=== PATIENT | female | born 1965 | race Caucasian/White ===

== ENCOUNTER 2023-06-02 09:49 | Outpatient (CLI) | payer BC, SELFPAY ==
--- OUTSIDE RECORDS SUMMARY | 2023-06-02 09:55 | XMS_ITS | Encounter Summary ---
Author Name Unknown Organization [facility] Address [address] [place] [address] Care Team Providers Care Inside Parts Sales Name Role Phone Katherin Landeros MD Primary Care Provider [phone] Reason for Visit * Reason Comments Refill sertraline (ZOLOFT) 50 MG tablet Encounter Details Date Type Department Care Team Description 04/28/2023 Refill [facility] [address] [place], [place] [id number] Katherin Landeros MD [address] [place] [address] Refill (sertraline (ZOLOFT) 50 MG tablet) Social History Tobacco Use Types Packs/Day Years Used Date Smoking Tobacco: Never Smokeless Tobacco: Never Alcohol Use Standard Drinks/Week Comments Yes 0 (1 standard drink = 0.6 oz pur e alcohol) 2-3 times per month PHQ-2 Answer Date Recorded PHQ-2 Score 0 04/28/2022 Sex and Gender Information Value Date Recorded Sex Assigned at Not on file Gender Identity Not on file Sexual Orientation Not on file documented as of this encounter Nursing Notes * Honey Hammonds - 05/04/2023 1:48 PM CST Medication Refill - Due for Visit Refill was approved for 90 day supply, patient is due to be seen in the next 90 days. Called patient, was: unable to reach patient. 2nd call attempted. Unsuccessful in reaching patient. Frontline Action: Close encounter. Refill has already been approved. CTOR OF DONOR RELATIONS * Honey Hammonds - 04/30/2023 9:50 AM CST Medication Refill - Due for Visit Refill was approved for 90 day supply, patient is due to be seen in the next 90 days. Called patient, was: unable to reach patient. 1st call attempted. Left message to call back. Scheduling Action: Patient needs to schedule an appointment in the next 3 months. If able to schedule, please document date of appointment. No further action is needed. CTOR OF DONOR RELATIONS * Mini Lauren RN - 04/28/2023 2:56 PM CST Further Assistance Needed on Refill from Can Tester Patient is due for Qualifying Visit Medication has been refilled for 90 day supply. Patient is due for an Office/Video Visit in the next 90 days.. Call Patient and document using .EVELYN. After attempting to schedule patient: Close encounter. Refill has already been processed per standing order. Requested Prescriptions Pending Prescriptions Disp Refills sertraline (ZOLOFT) 50 MG tablet 90 Tablet 0 Sig: Take 1 Tablet (50 mg) by mouth daily. CTOR OF DONOR RELATIONS * Kacey, Gretchen Surescripts Prov Query - 04/28/2023 2:55 PM CST sertraline (ZOLOFT) 50 MG tablet Medication started: 10/06/2017 Last ordered by KATHERIN LANDEROS: 04/28/2022 (365 days ago) QTY: 90, Refills: 3, Sig: take 1 tablet (50 mg) by mouth daily. (unchanged) -> An office visit is overdue (performed over 12 months ago, required every 12 months). -> Refill x 1 month (courtesy refill. overdue for an office visit) Last qualifying visit: 04/28/2022 (with KATHERIN LANDEROS) Next scheduled visit: None Age: 57 [employer] Ref[employer], Reference: [id number], 04/28/2023 2:55:40 PM DIRECTOR OF DONOR RELATIONS, Pool: PN Refill Centralized Services - Primary Care [[id number]] ([id number]) CTOR OF DONOR RELATIONS * Riddhi Sequeira - 04/28/2023 2:52 PM CST Medications - Refill Request Name of prescribing clinician: Tevin Landeros MD Additional comments (related to the above concern):Pt states that pharmacy put in refill request and has not heard nothing back, Pt has one medication that she needs that says the script is as well, Pt states she is out of the sertraline (ZOLOFT) 50 MG tablet as well For this refill, patient would like it filled at the pharmacy listed in Medication Management. If there are questions regarding your request, is it okay to leave a detailed message on your voicemail? Yes Is there anything else I can help you with today? CTOR OF DONOR RELATIONS documented in this encounter Plan of Treatment Not on file documented as of this encounter Visit Diagnoses Diagnosis Current mild episode of major depressive disorder without prior episode (HRC) documented in this encounter Care Teams Inside Parts Sales Relationship Specialty Start Date End Date Katherin Landeros MD [address] [facility] [address] [place] [address] PCP - General Internal Medicine 03/26/22 documented as of this encounter
--- OUTSIDE RECORDS SUMMARY | 2023-06-02 09:55 | XMS_ITS | Encounter Summary ---
Author Name Unknown Organization [facility] Address [address] [place] [address] Care Team Providers Care Manager Program Management Name Role Phone Billie Landeros MD Primary Care Provider [phone] Reason for Referral * Therapies (Routine) - New Request Specialty Diagnoses / Procedures Referred By Contbianca t Referred To Contact Diagnoses Right lumbar radiculitis Idiopathic scoliosis and kyphoscoliosis Nery Pang, JASVIR [address] [place] [address] POS NOT ON FILE Referral ID Status Reason Start Date Expiration Date V isits Requested Visits Authorized [id number] New Request 10/03/2022 10/03/2023 1 1 Scheduling Instructions This order is your clinician's recommendation for a service and is not an insurance referral which authorizes payment. The recommended service and/or location may not be covered by your insurance plan. Please call the number on your insurance card to find out your specific benefits and coverage for the recommended services and/or location. If you need help scheduling the recommended services, please ask your clinician's staff to assist you. Question Answer Appointment Urgency? Non-Urgent Requested Services Evaluate and treat May use saline for irrigation or cleansing Yes dexamethasone use Yes May check glucose per protocol (see policy link below) or if patient has symptoms? Yes Comments Kyphoscoliosis; Rt LBP to pelvis and anteromedial RT leg MR L spine negative Consider MSK causes Reason for Visit * Reason Comments MRI Results Lumbar Encounter Details Date Type Department Care Team Description 10/03/2022 10:00 AM CDT Office Visit [facility] [address] [facility] [place] [address] Nery Pang PA-C [address] [facility] [place] [address] Right lumbar radiculitis (Primary Dx); Idiopathic scoliosis and kyphoscoliosis Social History Tobacco Use Types Packs/Day Years [...] on file documented as of this encounter Patient Instructions * Patient Instructions* Isacc Awan CMA - 10/03/2022 10:00 AM CDT Thank you for Choosing [facility] for your health care visit today. Nery Pang PA-C [facility] hours: 7:30a-6:30p M/W/F Please allow time for insurance prior authorization on imaging and interventions Medication Requests: Prescriptions are not filled on weekends or on weekdays after 3:00 PM. For all medication refills: Request a refill using Zipdialt or contact your pharmacy. What is Know Your Cost? Know Your Cost is a service for patients and patient/members to call and receive personalized cost information and estimates across our care group. The phone number is (COST) Thursday - Thursday 8 AM to 5 PM Advanced Imaging Scheduling: To schedule an MRI, Ultrasound, or Image guided injection at [facility] please call [phone]. To schedule an MRI or CT at a [facility] location please call [phone]. [facility] Workers[employer] [address] [place], [place] [address] (Phone) Email: [email or web address] Release of Information: Radiology/Imaging [address] [place] [address] (Phone) Health Information Management [address] [place] [address] (Phone) [email or web address] documented in this encounter Progress Notes * Nery Pang PA-C - 10/03/2022 10:00 AM CDT Dana Allan [id number] 1965 [facility] Follow-Up 10/03/2022 History of Present Illness: Dana Allan is a 57 y.o. female who presents for follow-up regarding chronic low back pain. I last evaluated the patient on 08/13/2022 at which time they described chronic back pain with radiation into the anterior thighs. Concern at that time was for lumbar nerve root compression, so a MRIof the Lumbar spine was ordered. The patient presents today to discuss results and further treatment options. Please see the MRI results below. Symptoms today have remained unchanged. She continues to describe difficulty with rolling fymn-xf-nhow at night, but denies motor weakness. The symptoms into the anterior legs are slightly less notable, but still intermittently present on the right. She is not using chronic medication for this, but will take ibuprofen as needed. She believes it ishelpful. Today, she rates her pain 1-2/10 on the pain scale. She has yet to schedule physical therapy. Physical Exam: Formal Neurological exam deferred Kyphoscoliotic She transitions well; gait non-antalgic Strength grossly intact Lumbar mobility preserved Imaging: MR of the Lumbar spine - (09/22/2022): FINDINGS: Five lumbar-type vertebral bodies. The conus medullaris terminates at the level of T12-L1. Normal cord signal. No acute compression fracture or suspicious osseous lesion. Mild degenerative disc changes. Normal alignment. Prominent right renal cyst. Level by level: T12-L1: No spinal canal or neural foraminal stenosis. L1-2: No spinal canal or neural foraminal stenosis. L2-3: No spinal canal or neural foraminal stenosis. L3-4: Minimal disc bulge. Mild facet arthropathy. No spinal canal stenosis. Slight neural foraminalstenosis. L4-5: Mild to moderate facet arthropathy. Minimal disc bulge. No canal stenosis. Foramina are patent. L5-S1: Minimal disc bulge. Mild facet arthropathy. Canal is patent. Foramina are patent. IMPRESSION: 1. Degenerative findings as above without significant spinal canal stenosis or high-grade neural foraminal stenosis. 2. Prominent right renal cyst. Report per radiology. I ordered and independently reviewed the imaging study above; the results were discussed with the patient. Diagnostic Impression: 1. Mild lumbosacral spondylosis 2. Kyphoscoliosis 3. Incidental finding of Right renal cyst Plan: Reassurance was given that her MRI looks quite good. I would suggest that she follow through with acourse of physical therapy. If not improved, or if pain localizes closer to the thoracic spine, I would suggest MR imaging of the thoracic spine without contrast. In the interim, she can continue with topical preparations, and oral mrnb-kli-dcttune anti-inflammatories and pain medications as tolerated. I would encourage her to remind her primary doctor of her right renal cyst at her next well visit. They can consider whether further ultrasound is required. TT: [address]: 24 minutes discussing above Scribe Disclosure: I, Nery Pang, am serving as a scribe to document services personally performed by Nery Kwon PA-C at this visit, based upon the provider's statements to me. All documentation has been reviewed by the aforementioned provider prior to being entered into the official medical record. Portions of this medical record were completed by a scribe. UPON MY REVIEW AND AUTHENTICATION BY ELECTRONIC SIGNATURE, this confirms (a) I performed the applicable clinical services, and (b) the record is accurate. Nery Pang PA-C documented in this encounter Plan of Treatment Scheduled Referrals Name Type Priority Associated Diagnoses Orde r Schedule Physical Therapy Referral Routine Right lumbar radiculitis Idiopathic scoliosis and kyphoscoliosis Ordered: 10/03/2022 documented as of this encounter Visit Diagnoses Diagnosis Right lumbar radiculitis- Primary Thoracic or lumbosacral neuritis or radiculitis, unspecified Idiopathic scoliosis and kyphoscoliosis Scoliosis (and kyphoscoliosis), idiopathic documented in this encounter Care Teams Manager Program Management Relationship Specialty Start Date End Date Billie Landeros MD [address] [facility] [address] [place] [address] PCP - General Internal Medicine 03/26/22 documented as of this encounter
--- OUTSIDE RECORDS SUMMARY | 2023-06-02 09:55 | XMS_ITS | Encounter Summary ---
Author Name Unknown Organization [facility] Address [address] [place] [id number] Care Team Providers Care Speech Assistant Name Role Phone Billie Landeros MD Primary Care Provider [phone] Encounter Details Date Type Department Care Team Description 12/19/2022 2:30 PM CDT Telemedicine [facility] [address] [place], [place] [id number] Mary Lowe APRN, CNP [address] [place] [address] ERIC (obstructive sleep apnea) (Primary Dx) Social History Tobacco Use Types Packs/Day Years [...] on file documented as of this encounter Progress Notes * Mary Lowe APRN, CNP - 12/19/2022 2:30 PM CDT Attempted to contact patient twice on [place] video with no answer. Mary Lowe APRN, POLLO documented in this encounter Plan of Treatment Not on file documented as of this encounter Visit Diagnoses Diagnosis ERIC (obstructive sleep apnea)- Primary Obstructive sleep apnea (adult) (pediatric) documented in this encounter Care Teams Speech Assistant Relationship Specialty Start Date End Date Billie Landeros MD [address] [facility] [address] [place] [address] PCP - General Internal Medicine 03/26/22 documented as of this encounter
--- OUTSIDE RECORDS SUMMARY | 2023-06-02 09:55 | XMS_ITS | Encounter Summary ---
Author Name Unknown Organization [facility] Address [address] [place] [address] Care Team Providers Care Brand Sales Consultant Name Role Phone Billie Landeros MD Primary Care Provider [phone] Reason for Referral * Procedure/Equipment (Routine) - Closed Specialty Diagnoses / Procedures Referred By Contac t Referred To Contact Diagnoses Kyphoscoliosis Lumbar radiculitis Procedures MR Lumbar Spine WO IV Cont Nery Pang PA-C [address] [place] [address] Referral ID Status Reason Start Date Expiration Date Visits Re quested Visits Authorized [id number] Closed 08/13/2022 11/12/2023 1 1 * Procedure/Equipment (Routine) - Incomplete Specialty Diagnoses / Procedures Referred By Contac t Referred To Contact Diagnoses Low back pain radiating to right leg Procedures XR Pelvis W Rt Lateral Hip Nery Pang PA-C [address] [place] [address] Referral ID Status Reason Start Date Expiration Date V isits Requested Visits Authorized [id number] Incomplete 08/13/2022 11/12/2023 1 1 * Procedure/Equipment (Routine) - Incomplete Specialty Diagnoses / Procedures Referred By Contac t Referred To Contact Diagnoses Low back pain radiating to right leg Procedures XR Lumbar Spine 2 Views Nery Pang PA-C [address] [place] [address] Referral ID Status Reason Start Date Expiration Date V isits Requested Visits Authorized [id number] Incomplete 08/13/2022 11/12/2023 1 1 Reason for Visit * Reason Comments BACK PAIN, LOW Encounter Details Date Type Department Care Team Description 08/13/2022 1:00 PM CDT Office Visit [facility] [address] [facility] [place] [address] Nery Pang PA-C [address] [facility] [place] [id number] Lumbar radiculitis (Primary Dx); Kyphoscoliosis Social History Tobacco Use Types Packs/Day Years [...] on file documented as of this encounter Last Filed Vital Signs Vital Sign Reading Time Taken Comments Blood Pressure - - Pulse - - Temperature - - Respiratory Rate - - Oxygen Saturation - - Inhaled Oxygen Concentration - - Weight 82.6 kg (182 lb) 08/13/2022 12:55 PM CDT Height 167.6 cm (5' 6) 08/13/2022 12:55 PM CDT Body Mass Index 29.38 08/13/2022 12:55 PM CDT documented in this encounter Patient Instructions * Patient Instructions* Nery Pang PA-C - 08/13/2022 1:00 PM CDT Thank you for Choosing [facility] for your health care visit today. Nery Pang PA-C Orthopaedic Spine Clinic hours: 7:30a-6:30p M/W/F Please allow time for insurance prior authorization on imaging and interventions Medication Requests: Prescriptions are not filled on weekends or on weekdays after 3:00 PM. For all medication refills: Request a refill using MyChart or contact your pharmacy. What is Know Your Cost? Know Your Cost is a service for patients and patient/members to call and receive personalized cost information and estimates across our care group. The phone number is (COST) Thursday - Thursday 8 AM to 5 PM Advanced Imaging Scheduling: To schedule an MRI, Ultrasound, or Image guided injection at [facility] please call [phone]. To schedule an MRI or CT at a [facility] location please call [phone]. [facility] Workers' Compensation [address] [place] [address] (Phone) Email: [email or web address] Release of Information: Radiology/Imaging [address] [place] [address] (Phone) Health Information Management [address] [place] [address] (Phone) [email or web address] Dear Anneliese, Lets get a MRI of the Lumbar spine looking at your lower lumbar levels for disc herniations Also, you are tender at the SI joints, so lets make sure there is no inflammation in the bone thereeither. documented in this encounter Progress Notes * Nery Pang PA-C - 08/13/2022 1:00 PM CDT Dana Allan [id number] 1965 [facility] Consultation 08/13/2022 Chief Complaint: Low back pain with radiation to the anterior thighs, right greater than left History of Present Illness: Dana Allan is a 57 y.o. female who was seen today in the medical spine clinic for evaluation of chronic low back pain with radiation to the anterolateral thighs which has been worsening over the last two years. Anneliese denies any inciting injury, and has a known history of kyphosis. She has dealt with longstanding low back pain, which usually will radiate to the lateral hips. In the last few years, she has had worsening pain into the anterior thigh stopping at the knees, right greater than left. Recently, shehad an episode where her pain was quite sharp and kept her up at night. In addition, she can also suffer with posterior lower extremity achiness, and note sensitivity to touch in the legs. She denies motor weakness. She will use oral anti-inflammatories as needed and with benefit. She participates in gericare aide, but has yet to do physical therapy. Today, she rates her pain 1-4/10 on the pain scale and denies red flags. Allergies: Amitriptyline Past Medical History: The patient has a past medical history of Adenomatous polyp of colon (09/05/2020), Anxiety, Breast disorder, Depression, Diaphragmatic hernia (11/23/2009), Heartburn, Irritable bowel syndrome, Migraines, Pap smear abnormality of cervix, STD (sexually transmitted disease), and Varicella. Past Surgical History: The patient has a past surgical history that includes Eye surgery; hiatal hernia repair (08/2015); hernia repair; Endomet Ablat Therm W/O Scope Guid; dilation and curettage; Gallbladder surgery (2017); laparoscopy; breast biopsy (Left, 02/16/2006); breast biopsy (Bilateral, 06/30/2017); breast biopsy (Right, 07/06/2017); and Acquired absence of other specified parts of digestive tract (Hiatal Hernia). Family History: The patient's family history includes Alcohol Abuse in her maternal grandfather; Cancer in her mother; Cancer, Breast in her mother; Cancer, Colon in her maternal uncle; Colon Polyps (ageof onset: 65) in her father; Diabetes in her father and paternal grandmother; Diabetes,Type II in her father, paternal grandmother, and paternal uncle; Emphysema in her maternal gra ndmother; Excessive sleepiness in her father; Heart Disease in her father and paternal grandfather; High Blood Pressure in her mother; High Cholesterol in her father; Hypertension in her father and mother; Sleep apnea in her father; Snoring in her father; Stroke in her father. There is no history of Cancer, Ovary, Osteoporosis, or Thyroid Disorder. Social History: They are a non-smoker. Review of Systems: 01/31 systems were reviewed and are negative except where noted here or on intake form: See intake form The General Medical History Form dated 08/11/2022 was updated and reviewed with the patient; this islocated in [employer] in [employer]. Physical Exam: VS: LMP 02/15/2017 (Exact Date) BMI: Estimated body mass index is 29.21 kg/m?? as calculated from the following: Height as of 06/24/22: 1.676 m (5' 6). Weight as of 06/24/22: 82.1 kg (181 lb). Gen/Psych: AxOx3. Good affect. Good historian. The patient is well groomed. The patient is not using an assistive device. Eyes: PERRL. ENT: Face symmetric. Resp: Unlabored. CV: Good perfusion to lower extremities. No edema. Skin: Warm & dry without discoloration or lesions MSK: Symmetric tone and bulk. The patient is kyphoscoliotic. Pelvis is grossly symmetric. Femoral Stretch Test deferred. DEVONTE positive bilaterally, right > left. FADIR negative. Neuro: Gait and station normal, and non-antalgic. The patient does transition well from a seated position. Toe walk, heel walk intact. Non-tender with palpation of spinous processes, paraspinal muscles, SI joints, sciatic notch, or greater trochanters. Lumbar mobility shows intact lumbar range of motion with all planes. Lower Extremity muscle group strength is 5/5 with hip flexion, knee add/abduction intact, knee extension intact, dorsi/ plantar flexion. SLR is negative. Sensation intact to light touch and pinprick. DTR's symmetric in the lower extremities at the patellar tendon, and ankle jerk. 2/4 . Imaging: XR of the Lumbar spine - (08/13/2022): FINDINGS: 2 views obtained. No acute fracture. Minimal degenerative disc height loss involving the lumbar spine. Moderate lumbar spine facet arthropathy, most prominent at the levels of L3-4, L4-5, and L5-S1. No significant anterolisthesis or retrolisthesis of lumbar vertebral bodies. Exaggerated lumbar lordosis. Cholecystectomy clips within the right upper quadrant. Portions of the bilateral sacroiliac joints are obscured by superimposition artifact from enteric contents and imaging obliquity,though the visualized portions of the sacroiliac joints are unremarkable in appearance. Bowel gas pattern nonobstructive XR Pelvis & Right Hip (08/13/2022): FINDINGS: 2 views obtained. No acute fracture. No significant hip osteoarthritic degenerative narrowing bilaterally. Minimal osseous spurring off the periphery of the left acetabular roof. No radiographic evidence of femoral head avascular necrosis. Partial visualization of mild degenerative changes across the bilateral sacroiliac joints. Degenerative changes across the pubic symphysis. Bowel gaspattern nonobstructive. I independently reviewed and interpreted the imaging studies above; the results were discussed withthe patient. Diagnostic Impression: Dana is a 57 y.o. year-old female with: 1. Kyphoscoliosis 2. Chronic low back pain 3. Bilateral lower extremity radiculitis Plan: We discussed imaging and treatment options today, and because she has been symptomatic for so long we elected to have her undergo MR imaging of the lumbar spine. This will show evidence of nerve rootcompression and disc degeneration which may be accounting for lower extremity symptoms. I will follow-up with her afterwards in clinic to review. If amenable, she may benefit from a course of physical therapy, and consideration of oral medications. She was in agreement. TT: 31 minutes, CT: 30 minutes, Time includes chart review of documentation and imaging, discussing symptoms, imaging, and exam findings, and available options. Documents reviewed prior to seeing the patient included a General Medical History Form, an Oswestry Disability Index with a PHQ-2, which has been imaged in to [employer]. *Please note this document was drafted using voice recognition software. Typographical errors are liable to occur. Nery Pang PA-C documented in this encounter Plan of Treatment Not on file documented as of this encounter Results * MR Lumbar Spine WO IV Cont (09/22/2022 10:19 AM CDT) Anatomical Region Laterality Modality Spine, L-Spine, Skeletal, MSK Ma gnetic Resonance 09/22/2022 9:54 AM CDT Impressions 09/22/2022 2:04 PM CDT INDICATION: Low back pain, symptoms persist with > 6 wks treatment; Chronic LBP; Kyphoscoliosis; RT > Lt LBP to ant thighs TECHNIQUE: ??Routine non-contrast MRI of the lumbar spine. COMPARISON: Lumbar spine radiographs 08/13/2022. FINDINGS: Five lumbar-type vertebral bodies. The conus medullaris terminates at the level of T12-L1. ??Normal cord signal. ??No acute compression fracture or suspicious osseous lesion. Mild degenerative disc changes. ??Normal alignment. Prominent right renal cyst. Level by level: T12-L1: No spinal canal or neural foraminal stenosis. L1-2: No spinal canal or neural foraminal stenosis. L2-3: No spinal canal or neural foraminal stenosis. ?? L3-4: Minimal disc bulge. Mild facet arthropathy. No spinal canal stenosis. Slight neural foraminal stenosis. L4-5: Mild to moderate facet arthropathy. Minimal disc bulge. No canal stenosis. Foramina are patent. L5-S1: Minimal disc bulge. Mild facet arthropathy. Canal is patent. Foramina are patent. ?? IMPRESSION: ?? 1. Degenerative findings as above without significant spinal canal stenosis or high-grade neural foraminal stenosis. 2. Prominent right renal cyst. Comment: Many lumbar spine MRI findings are so common that while we may have reported their presence, they must be interpreted with caution and in the context of the clinical situation. The frequency of these findings in adults WITHOUT low back pain increases with age and are as follows: disk degeneration (37-96%), disk height loss (24-84%), disk bulge (30-84%), disk protrusion (29-43%), annular fissure (19- 29%), and facet degeneration (4-83%). Frequency percentages adapted from Etelvina W, Felicitas PH, Carrillo B, et al. AJNR AM J Neuroradiol 2015:36:811-16. Narrative Procedure Note Daniel Kilpatrick MD - 09/22/2022 IMPRESSION INDICATION: Low back pain, symptoms persist with > 6 wks treatment;Chronic LBP; Kyphoscoliosis; RT > Lt LBP to ant thighs TECHNIQUE: Routine non-contrast MRI of the lumbar spine. COMPARISON: Lumbar spine radiographs 08/13/2022. FINDINGS: Five lumbar-type vertebral bodies. The conus medullaristerminates at the level of T12-L1. Normal cord signal. No acutecompression fracture or suspicious osseous lesion. Mild degenerative discchanges. Normal alignment. Prominent right renal cyst. Level by level: T12-L1: No spinal canal or neural foraminal stenosis. L1-2: No spinal canal or neural foraminal stenosis. L2-3: No spinal canal or neural foraminal stenosis. L3-4: Minimal disc bulge. Mild facet arthropathy. No spinal canalstenosis. Slight neural foraminal stenosis. L4-5: Mild to moderate facet arthropathy. Minimal disc bulge. No canalstenosis. Foramina are patent. L5-S1: Minimal disc bulge. Mild facet arthropathy. Canal is patent.Foramina are patent. IMPRESSION: 1. Degenerative findings as above without significant spinal canalstenosis or high-grade neural foraminal stenosis. 2. Prominent right renal cyst. Comment: Many lumbar spine MRI findings are so common that while we mayhave reported their presence, they must be interpreted with caution and inthe context of the clinical situation. The frequency of these findings inadults WITHOUT low back pain increases with age and are as follows: diskdegeneration (37-96%), disk height loss (24-84%), disk bulge (30-84%),disk protrusion (29-43%), annular fissure (19- 29%), and facet degeneration(4-83%). Frequency percentages adapted from Etelvina W, Luetmer PH, [place] B, etal. AJNR AM J Neuroradiol 2015:36:811-16. Nery Pang PA-C RAD MRI * XR Pelvis W Rt Lateral Hip (08/13/2022 1:09 PM CDT) Anatomical Region Laterality Modality Pelvis, Hip Digital Radiogra phy 08/13/2022 12:5 9 PM CDT Impressions 08/13/2022 1:35 PM CDT COMPARISON: ??None. FINDINGS: ??2 views obtained. No acute fracture. No significant hip osteoarthritic degenerative narrowing bilaterally. Minimal osseous spurring off the periphery of the left acetabular roof. No radiographic evidence of femoral head avascular necrosis. Partial visualization of mild degenerative changes across the bilateral sacroiliac joints. Degenerative changes across the pubic symphysis. Bowel gas pattern nonobstructive. Narrative Procedure Note Daniel Boyle MD - 08/13/2022 IMPRESSION COMPARISON: None. FINDINGS: 2 views obtained. No acute fracture. No significant hiposteoarthritic degenerative narrowing bilaterally. Minimal osseousspurring off the periphery of the left acetabular roof. No radiographicevidence of femoral head avascular necrosis. Partial visualization of milddegenerative changes across the bilateral sacroiliac joints. Degenerativechanges across the pubic symphysis. Bowel gas pattern nonobstructive. Nery Pang PA-C RAD GD * XR Lumbar Spine 2 Views (08/13/2022 1:08 PM CDT) Anatomical Region Laterality Modality Spine, L-Spine Digital Radiogra phy 08/13/2022 12:5 9 PM CDT Impressions 08/13/2022 1:34 PM CDT COMPARISON: ??10/19/2006 FINDINGS: ??2 views obtained. No acute fracture. Minimal degenerative disc height loss involving the lumbar spine. Moderate lumbar spine facet arthropathy, most prominent at the levels of L3-4, L4-5, and L5-S1. No significant anterolisthesis or retrolisthesis of lumbar vertebral bodies. Exaggerated lumbar lordosis. Cholecystectomy clips within the right upper quadrant. Portions of the bilateral sacroiliac joints are obscured by superimposition artifact from enteric contents and imaging obliquity, though the visualized portions of the sacroiliac joints are unremarkable in appearance. Bowel gas pattern nonobstructive. Narrative Procedure Note Daniel Boyle MD - 08/13/2022 IMPRESSION COMPARISON: 10/19/2006 FINDINGS: 2 views obtained. No acute fracture. Minimal degenerative discheight loss involving the lumbar spine. Moderate lumbar spine facetarthropathy, most prominent at the levels of L3-4, L4-5, and L5-S1. Nosignificant anterolisthesis or retrolisthesis of lumbar vertebral bodies.Exaggerated lumbar lordosis. Cholecystectomy clips within the right upperquadrant. Portions of the bilateral sacroiliac joints are obscured bysuperimposition artifact from enteric contents and imaging obliquity,though the visualized portions of the sacroiliac joints are unremarkablein appearance. Bowel gas pattern nonobstructive. Nery MANE GD documented in this encounter Visit Diagnoses Diagnosis Lumbar radiculitis- Primary Thoracic or lumbosacral neuritis or radiculitis, unspecified Kyphoscoliosis Scoliosis (and kyphoscoliosis), idiopathic Low back pain radiating to right leg Lumbago Low back pain radiating to right leg Lumbago Kyphoscoliosis Scoliosis (and kyphoscoliosis), idiopathic Lumbar radiculitis Thoracic or lumbosacral neuritis or radiculitis, unspecified documented in this encounter Care Teams Brand Sales Consultant Relationship Specialty Start Date End Date Billie Landeros MD [address] [place] [address] PCP - General Internal Medicine 03/26/22 documented as of this encounter
--- OUTSIDE RECORDS SUMMARY | 2023-06-02 09:55 | XMS_ITS | Encounter Summary ---
Author Name Unknown Organization [facility] Address [address] [address] Care Team Providers Care Agricultural Services Director Name Role Phone Billie Landeros MD Primary Care Provider [phone] Reason for Referral * Procedure/Equipment (Routine) - Closed Specialty Diagnoses / Procedures Referred By Anjel t Referred To Contact Diagnoses UARS (upper airway resistance syndrome) Snoring Witnessed episode of apnea Excessive daytime sleepiness GERD without esophagitis Procedures Sleep Diagnostic Tests: HST Daniel Randall APRN, CNP [address] [place] [address] Referral ID Status Reason Start Date Expiration Date Visits Re quested Visits Authorized [id number] Closed 06/24/2022 09/23/2023 1 1 WARDEN Reason for Visit * Reason Comments CONSULT * Consult/Transfer Care (Routine) - New Request Specialty Diagnoses / Procedures Referred By Anjel whaley Referred To Contact [facility] Diagnoses Suspected sleep apnea Billie Landeros MD [address] [place] [address] [id number] [address] [place] [address] Referral ID Status Reason Start Date Expiration Date V isits Requested Visits Authorized [id number] New Request 04/28/2022 07/28/2023 1 1 Encounter Details Date Type Department Care Team Description 06/24/2022 11:30 AM [facility] [address] Pul[facility] Medicine [address] [place], [place] [id number] Daniel Randall, KATELYN, MARKETING BUSINESS ANALYST [address] [place], [place] [id number] UARS (upper airway resistance syndrome) (Primary Dx); Snoring; Witnessed episode of apnea; Excessive daytime sleepiness; GERD without esophagitis Social History Tobacco Use Types Packs/Day Years Used Date Smoking Tobacco: Never Smokeless Tobacco: Never Tobacco Cessation:Counseling Given: Not Answered Alcohol Use Standard Drinks/Week Comments Yes 0 [...] - Inhaled Oxygen Concentration - - Weight 82.1 kg (181 lb) 06/24/2022 8:23 AM TREE WARDEN Height 167.6 cm (5' 6) 06/24/2022 8:23 AM [facility] Body Mass Index 29.21 06/24/2022 8:23 AM [facility] documented in this encounter Patient Instructions * Patient Instructions* Daniel Randall, KATELYN, MARKETING BUSINESS ANALYST - 06/24/2022 11:30 AM TREE [facility] It was a pleasure to see you today. I hope I was able to answer all of your questions. If you have any further questions do not hesitate to call [phone]. Our sleep center will be calling you to schedule a home sleep test. Once you have completed that test, we will follow-up to review the results and formulate a plan going forward WARDEN documented in this encounter Progress Notes * Daniel Randall APRN, CNP - 06/24/2022 11:30 AM CST Chief Complaint Patient presents with CONSULT SUBJECTIVE : The patient is a 57 y.o. female who presents today for consultation for possible obstructive sleep apnea. She has a history of upper airway resistance syndrome diagnosed in the [facility] in May of 2010. Weight at that time was 174 lb, AHI was 0.3, RDI 21 per hour, oxygen kenny onthat test 90%. She returns to clinic today with progression of several symptoms including snoring, witnessed apneas, choking and gasping awakenings. The snoring has gotten so bad at this point that she has woken herself up snoring and her has left the bedroom at this point. As above, she does report significant snoring as well as witnessed apneas. She does not feel well rested upon wakening. She does experience excessive daytime sleepiness. Typical bedtime is between 11:30 p.m. and 12:30 a.m.. Sleep initiation is rapid, taking between 5 and 20 minutes. Rise time is 7:30 a.m. during the week and as late as 10:00 a.m. during the weekends. She does experience 2-4 nocturnal awakenings but generally does not have any difficulty reinitiating sleep. She feels as though she gets 7-8 hours of sleep each night. She does take naps on the weekend and finds these refreshing,but these can be up to 3 hours long. She works as an construction operations manager and occasionally is forced t o work days as long as 20 hours. [place] Sleepiness scale is 11. The patient does not report any morning headaches, excessive caffeine intake, restless legs or PLMSsymptoms, signs and symptoms of parasomnias, or drowsy driving. She does report a history of hiatalhernia status post surgical repair but with some residual GERD that may or may not be related to her probable obstructive sleep apnea at this point. 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/2015 Hiatal hernia 07/26/2013 Hypersomnia with sleep apnea 06/24/2010 Overview Note: LW Modifier: RDI 21 Dental appliance ; 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/2008 Overview Note: LW Modifier: multiple surgeries since ; Strabismus NOS Mixed incontinence urge and stress (male)(female) 05/30/2008 Overview Note: LW Onset: 2007 ; Incontinence Urinary Stress & Urge Mixed stress and urge urinary incontinence 05/30/2008 Overview Note: LW Onset: 2007 ; Incontinence Urinary Stress & Urge Major depressive disorder, single episode (HRC) 08/11/2003 Overview Note: Depression Major NOS Past Surgical History: Procedure Laterality Date ACQUIRED ABSENSE OF OTHER SPECIFIED PARTS OF DIGESTIVE TRACT Hiatal Hernia Gall Bladder BREAST BIOPSY Left 02/16/2006 neg, removal of radial scar on left 2015 BREAST BIOPSY Bilateral 06/30/2017 rt-fibroadenoma, lt-radial scar BREAST BIOPSY Right 07/06/2017 radial scar DILATION AND CURETTAGE morcellation of submucosal myoma ENDOMET ABLAT THERM W/O SCOPE GUID EYE SURGERY GALLBLADDER SURGERY 2017 HERNIA REPAIR Hiatal HIATAL HERNIA REPAIR 08/2015 [facility] LAPAROSCOPY Past Medical History: Diagnosis Date Adenomatous polyp of colon 09/05/2020 Anxiety (HRC) Breast disorder radial scars. Bilarteral Depression Diaphragmatic hernia 11/23/2009 LW Modifier: large with Surya's Ulcers ; Hernia Hiatal Heartburn Irritable bowel syndrome Migraines None since 2014 Pap smear abnormality of cervix about 1988 normal since STD (sexually transmitted disease) (HRC) HPV on cervix Varicella SOCIAL HISTORY Family History Problem Relation Age of Onset High Blood Pressure Mother Cancer, Breast Mother Dx age 72 Cancer Mother Saliva gland Hypertension Mother Diabetes Father Heart Disease Father Dx mid 50s Diabetes, Type II Father High Cholesterol Father Hypertension Father Stroke Father Colon Polyps Father 65 Excessive sleepiness Father Sleep apnea Father Snoring Father Diabetes Paternal Grandmother Diabetes, Type II Paternal Grandmother Heart Disease Paternal Grandfather Emphysema Maternal Grandmother Alcohol Abuse Maternal Grandfather Diabetes, Type II Paternal Uncle Cancer, Colon Maternal Uncle 71 Cancer, Ovary Negative Family History Osteoporosis Negative Family History Thyroid Disorder Negative Family History MEDICATIONS Outpatient Encounter Medications as of 06/24/2022 Medication Sig Dispense Refill calcium carbonate-vitamin D 600-400 MG-UNIT tablet Take 1 Tablet by mouth daily. colestipol (COLESTID) 1 g tablet Take 1 Tablet (1 g) by mouth two times a day. 180 Tablet 3 Multiple Vitamins-Minerals (MULTIVITAMIN OR) Take 1 tablet by mouth daily (every 24 hours). 100 13 omeprazole (PRILOSEC) 20 MG capsule Take 1 Capsule (20 mg) by mouth daily. Take 1 hour before a meal. 90 Capsule 3 sertraline (ZOLOFT) 50 MG tablet Take 1 Tablet (50 mg) by mouth daily. 90 Tablet 3 No facility-administered encounter medications on file as of 06/24/2022. Allergies Allergen Reactions Amitriptyline Other, see comments and Tachycardia anxiety OBJECTIVE : Gen.: Alert, cooperative in no acute distress. Ht 5' 6 (1.676 m) Wt 181 lb (82.1 kg) LMP 02/15/2017 (Exact Date) BMI 29.21 kg/m?? , Estimated body mass index is 29.21 kg/m?? as calculated from the following: Height as of this encounter: 5' 6 (1.676 m). Weight as of this encounter: 181 lb (82.1 kg). Head: Normocephalic. Neurologic: Alert, oriented x3, nonfocal. Today's visit was performed via video which significantly limited the physical exam. Patient did not appear to be any apparent distress during the duration of our call. Sleep Study: Dated 06/07/10 Total Sleep 435.5 minutes Sleep Efficiency 90 % AHI 0.3 RDI 21 Oxygen Kenny 90%, PLMS arousal index 6/hour ASSESSMENT : The patient is a 57 y.o. female diagnosed with moderate upper airway resistance syndrome in 2010 who has had progression of symptoms including snoring, witnessed apneas, daytime sleepiness, non-refreshing sleep, and GERD which suggests that her UARS has progressed to obstructive sleep apnea. The pat hophysiology of sleep apnea and treatment options were discussed with the patient including an oralappliance and cpap. Surgical options were not encouraged. The risk factors associated with sleep apnea were also discussed and all questions were answered. PLAN : ICD-10-CM 1. UARS (upper airway resistance syndrome) G47.8 Sleep Diagnostic Tests: HST 2. Snoring R06.83 Sleep Diagnostic Tests: HST 3. Witnessed episode of apnea R06.81 Sleep Diagnostic Tests: HST 4. Excessive daytime sleepiness G47.19 Sleep Diagnostic Tests: HST 5. GERD without esophagitis K21.9 Sleep Diagnostic Tests: HST 1. The patient will do a HST 2. Information regarding the treatment of ERIC were also provided. 3. Patient will follow up with me after She sleep study. Daniel Randall APRN, CNP This visit was conducted via telephone after failure of video. Location of clinician clinic. Location of patient work. Billing based on: Complexity--Level 4 WARDEN documented in this encounter Plan of Treatment Scheduled Orders Name Type Priority Associated Diagnoses Orde r Schedule Sleep Diagnostic Tests: HST Sleep Study Routine UARS (upper airway resistance syndrome) Snoring Witnessed episode of apnea Excessive daytime sleepiness GERD without esophagitis 1 Occurrences starting 06/24/2022 documented as of this encounter Visit Diagnoses Diagnosis UARS (upper airway resistance syndrome)- Primary Other organic sleep disorders Snoring Other dyspnea and respiratory abnormality Witnessed episode of apnea Excessive daytime sleepiness GERD without esophagitis Esophageal reflux documented in this encounter Care Teams Agricultural Services Director Relationship Specialty Start Date End Date Billie Landeros MD [address] [place] [address] PCP - General Internal Medicine 03/26/22 documented as of this encounter
--- OUTSIDE RECORDS SUMMARY | 2023-06-02 09:55 | XMS_ITS | Encounter Summary ---
Author Name Unknown Organization [facility] Address [address] [place] [address] Care Team Providers Care Conference Translator Name Role Phone Katherin Landeros MD Primary Care Provider [phone] Reason for Visit * Reason Comments Refill omeprazole (PRILOSEC ) 20 MG capsule Encounter Details Date Type Department Care Team Description 04/28/2023 Refill [facility] [address] [place], [place] [address] Katherin Landeros MD [address] [place], [place] [address] Refill (omeprazole (PRILOSEC) 20 MG capsule) Social History Tobacco Use Types Packs/Day Years [...] as of this encounter Nursing Notes * Miin Lauren RN - 04/28/2023 2:57 PM CST Renewed medication per medication refill standing order. Requested Prescriptions Pending Prescriptions Disp Refills omeprazole (PRILOSEC) 20 MG capsule 90 Capsule 0 Sig: Take 1 Capsule (20 mg) by mouth daily. Take 1 hour before a meal. R COVERING LAYER * Riddih Sequeira - 04/28/2023 2:55 PM CST COPIED FROM SPLIT REFILL ENCOUNTER Medications - Refill Request Name of prescribing [...] else I can help you with today? R COVERING LAYER * Interface, Out Surescripts Prov Query - 04/28/2023 2:55 PM CST omeprazole (PRILOSEC) 20 MG capsule Medication started: 04/28/2022 Last ordered by KATHERIN LANDEROS: 04/28/2022 (365 days ago) QTY: 90, Refills: 3, Sig: take 1 capsule (20 mg) by mouth daily. take 1 hour before a meal. (unchanged) -> An office visit is overdue (performed over 12 months ago, required every 12 months). -> The most recent order on 05/28/2022. -> Refill x 1 month (courtesy refill. overdue for an office visit) Last qualifying visit: 04/28/2022 (with KATHERIN LANDEROS) Next scheduled visit: None [employer] Embedded Refills, Reference: [id number], 04/28/2023 2:55:40 PM FLOOR COVERING LAYER, Pool: PN Refill Centralized Services - Primary Care [[id number]] ([id number]) R COVERING LAYER documented in this encounter Plan of Treatment Not on file documented as of this encounter Visit Diagnoses Not on filedocumented in this encounter Care Teams Conference Translator Relationship Specialty Start Date End Date Katherin Landeros MD [address] [place] [address] PCP - General Internal Medicine 03/26/22 documented as of this encounter
--- OUTSIDE RECORDS SUMMARY | 2023-06-02 09:55 | XMS_ITS | Encounter Summary ---
Author Name Unknown Organization [facility] Address [address] [place] [address] Care Team Providers Care Warehouse Assistant Name Role Phone Billie Landeros MD Primary Care Provider [phone] Reason for Visit * Reason Comments QUESTIONS, GENERAL Entered automaticall y based on patient selection in [employer]. Encounter Details Date Type Department Care Team Description 04/25/2023 8:20 PM LOTUS NOTES DEVELOPER E-Visit [facility] [address] [place], [place] [id number] Billie Landeros MD [address] [place] [address] Dx: Current mild episode of major depressive disorder without prior episode (HRC) Social History Tobacco Use Types Packs/Day Years [...] on file documented as of this encounter Plan of Treatment Not on file documented as of this encounter Visit Diagnoses Diagnosis Current mild episode of major depressive disorder without prior episode (HRC) documented in this encounter Care Teams Warehouse Assistant Relationship Specialty Start Date End Date Billie Landeros MD [address] [place] [address] PCP - General Internal Medicine 03/26/22 documented as of this encounter
--- OUTSIDE RECORDS SUMMARY | 2023-06-02 09:55 | XMS_ITS | Encounter Summary ---
Author Name Unknown Organization [facility] Address [address] [place] [address] Care Team Providers Care Whey Department Operator Name Role Phone Billie Landeros MD Primary Care Provider [phone] Reason for Visit * Reason Comments Refill colestipol (COLESTID ) 1 g tablet [Pharmacy Med Name: COLESTIPOL 1GM] Encounter Details Date Type Department Care Team Description 02/13/2023 Refill [facility] [address] [place] [address] Ramez Lopez MD [facility] [place], [place] [id number] Refill (colestipol (COLESTID) 1 g tablet [Pharmacy Med Name: COLESTIPOL 1GM]) Social History Tobacco Use Types Packs/Day Years [...] as of this encounter Nursing Notes * Interface, Out Surescripts Prov Query - 02/13/2023 7:28 AM CDT colestipol (COLESTID) 1 g tablet [Pharmacy Med Name: COLESTIPOL 1GM] Bile Acid Sequestrants 1 -> This medication was discontinued on 09/03/2021 by MARIE CARVALHO. -> A qualifying visit was not found within the last 2 years. Last qualifying visit: None Next scheduled visit: None Last ordered by RAMEZ LOPEZ P: 09/03/2021 (528 days ago) QTY: 180, Refills: 3, Sig: take 1 tablet (1 g) by mouth two times a day. (changed but equivalent) [employer] Embedded Refills, Reference: [id number], 02/13/2023 7:28:32 AM CDT, Pool: GI NURSING-PN ([id number]) documented in this encounter Plan of Treatment Not on file documented as of this encounter Visit Diagnoses Not on filedocumented in this encounter Care Teams Whey Department Operator Relationship Specialty Start Date End Date Billie Landeros MD [address] [facility] [address] [place] [address] PCP - General Internal Medicine 03/26/22 documented as of this encounter
--- OUTSIDE RECORDS SUMMARY | 2023-06-02 09:55 | XMS_ITS | Clinical Summary ---
Author Name Unknown Organization [facility] Address [place], [place] [address] Care Team Providers Care Facilities Technician Name Role Phone Tevin Landeros Primary Care Provider [phone] Allergies Active Allergy Reactions Criticality Noted Date Comments Amitriptyline Anxiety 12/02/2017 Medications Medication Sig Dispensed Refills Start Date End Date Status CALCIUM CARBONATE-VITAMIN D3 ORAL Take by mouth once daily. 0 Active estradiol (ESTRACE) 0.1 mg/g vaginal cream Insert into the vagina at bedtime if needed. 0 Active multivit with iron,minerals (MULTIVITAMIN AND MINERALS ORAL) Take by mouth once daily. 0 Active omeprazole (PRILOSEC OTC) 20 mg tablet Take 20 mg by mouth once daily. 0 Active Lactobacillus acidophilus (PROBIOTIC ACIDOPHILUS ORAL) Take by mouth once daily. 0 Active sertraline (ZOLOFT) 50 mg tablet Take 50 mg by mouth once daily. 0 Active oxyCODONE-acetaminoph en, 5-325 mg, (PERCOCET) 5-325 mg per tabletIndications:S/P laparoscopic cholecystectomy Take 1-2 tablets by mouth every 4 hours if needed for Pain Max acetaminophen dose: 4000mg in 24 hrs. 20 tablet 0 12/07/2017 Active iron bisgly,ps-FA-B-C#12-s ucc 65 mg-65 mg -1,000 mcg (24) tab Take by mouth. 0 A ctive HYDROcodone-acetamino phen, 5-325 mg, (NORCO) per tabletIndications:Bhaskar al colic on left side Take 1-2 tablets by mouth every 6 hours if needed for Pain Max acetaminophen dose: 4000 mg in 24 hrs. 8 tablet 0 03/30/2020 Active ibuprofen (ADVIL; MOTRIN) 600 mg tabletIndications:Bhaskar marroquin colic on left side Take 1 tablet by mouth every 6 hours if needed. Maximum of 3200 mg in 24 hours. 30 tablet 0 03/30/2020 Active ondansetron (ZOFRAN ODT) 4 mg disintegrating tabletIndications:Bhaskar marroquni colic on left side Place 1-2 tablets on the tongue every 8 hours if needed for Nausea/Vomiting. 15 tablet 0 03/30/2020 Active Social History Tobacco Use Types Packs/Day Years Used Date Smoking Tobacco: Never Smokeless Tobacco: Never Alcohol Use Standard Drinks/Week Comments Yes 0 (1 standard drink = 0.6 oz pur e alcohol) 2-3 x's per month Sex and Gender Information Value Date Recorded Sex Assigned at Not on file Gender Identity Not on file Sexual Orientation Not on file Obstetrics History Last Filed Vital Signs Vital Sign Reading Time Taken Comments Blood Pressure 141/72 03/30/2020 12:30 AM ELIGIBILITY EXAMINER Pulse 70 03/29/2020 11:27 PM ELIGIBILITY EXAMINER Temperature 36.5 ??C (97.7 ??F) 03/29/2020 9:52 PM CS T Respiratory Rate 19 03/29/2020 9:52 PM ELIGIBILITY EXAMINER Oxygen Saturation 95% 03/30/2020 12:30 AM ELIGIBILITY EXAMINER Inhaled Oxygen Concentration - - Weight 74.8 kg (165 lb) 03/29/2020 9:52 PM ELIGIBILITY EXAMINER Height 167.6 cm (5' 6) 03/29/2020 9:52 PM ELIGIBILITY EXAMINER Body Mass Index 26.63 03/29/2020 9:52 PM ELIGIBILITY EXAMINER Plan of Treatment Not on file Advance Directives Latest Code Status on File Code Status Date Activated Date Inactivated Comments Full Code 12/07/2017 11:29 AM 12/07/2017 4:52 PM Care Teams Facilities Technician Relationship Specialty Start Date End Date Tevin Landeros PCP - General Internal Medicine 12/03/17
--- OUTSIDE RECORDS SUMMARY | 2023-06-02 09:55 | XMS_ITS | Clinical Summary ---
Author Name Unknown Organization [facility] Address [address] [place] [address] Care Team Providers Care Engineering Program Analyst Name Role Phone Billie Landeros MD Primary Care Provider [phone] Source Comments You are receiving this document as you are listed as the primary care provider,follow-up provider, or the patient has been referred to you for consultation.This is in compliance with the Medicare and[facility] EHR Incentive Program,which states Providers who transition their patient to another setting of careor provider of care or refers their patient to another provider of care shouldprovide summary care record for each transition of care or referral. [employer] Allergies Active Allergy Reactions Criticality Noted Date Comments Amitriptyline Other, see comments,Tachycardia 0 07/08/2002 anxiety Medications Medication Sig Dispensed Refills Start Date End Date Status Multiple Vitamins-Minerals (MULTIVITAMIN OR) Take 1 tablet by mouth daily (every 24 hours). 100 13 10/18/2004 Active calcium carbonate-vitamin D 600-400 MG-UNIT tablet Take 1 Tablet by mouth daily. 0 11/09/2009 Active colestipol (COLESTID) 1 g tablet Take 1 Tablet (1 g) by mouth two times a day. 180 Tablet 3 09/03/2021 Active sertraline (ZOLOFT) 50 MG tabletIndications:C urrent mild episode of major depressive disorder without prior episode (HRC) Take 1 Tablet (50 mg) by mouth daily. 90 Tablet 0 04/28/2023 Active omeprazole (PRILOSEC) 20 MG capsule Take 1 Capsule (20 mg) by mouth daily. Take 1 hour before a meal. 90 Capsule 0 04/28/2023 07/27/2023 Active sertraline (ZOLOFT) 50 MG tabletIndications:C urrent mild episode of major depressive disorder without prior episode (HRC) Take 1 Tablet (50 mg) by mouth daily. 90 Tablet 0 04/28/2023 Active omeprazole (PRILOSEC) 20 MG capsule Take 1 Capsule (20 mg) by mouth daily. Take 1 hour before a meal. 90 Capsule 0 04/28/2023 Active Active Problems Problem Noted Date Diagnosed Date ERIC on CPAP 08/08/2022 Overview: HST 07/18/22 RDI 15/hr MIL 16/hr O2 kenny: 87% APAP 5-15 cm H2O [place] Kidney stones 11/25/2019 Overview: Recurrence: 2019: calcium oxalate from 03/2020 stoen analysis Cervical high risk HPV (human papillomavirus) te st positive 09/22/2017 Overview: [facility] Review: History: 2018: NILM, HPV+ (non 16/18) 2019: NILM, HPV+ (non 16/18)/ COLP NEGATIVE 2020: NILM HPV NEGATIVE Plan, per ASCCP guidelines: REPEAT COTEST IN 3 YEARS 2022 Radial scar of breast 03/17/2016 Unilateral high frequency hearing loss 5 Hiatal hernia 07/26/2013 Hypersomnia with sleep apnea 06/24/2010 Overview: LW Modifier: RDI 21 Dental appliance ; 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/2008 Overview: LW Modifier: multiple surgeries since ; Strabismus NOS Mixed incontinence urge and stress (male)(female ) 05/30/2008 Overview: LW Onset: 2007 ; Incontinence Urinary Stress & Urge Mixed stress and urge urinary incontinence 05/30 Overview: LW Onset: 2007 ; Incontinence Urinary Stress & Urge Major depressive disorder, single episode 2003 Overview: Depression Major NOS Resolved Problems Problem Noted Date Diagnosed Date Resolved Date Adenomatous polyp of colon 09/05/2020 0 11/16/2020 Overview: Colonoscopy completed 08/2020. Repeat in 3 years (08/2023). Diaphragmatic hernia 11/23/2009 021 Overview: LW Modifier: large with Surya's Ulcers ; Hernia Hiatal Migraine with aura 05/30/2008 Overview: LW Modifier: hormonal component: numbness on right side Abnormal glandular Papanicol aou smear of cervix 05/30/2008 09/22/2017 Overview: LW Modifier: + HPV, repeat pap smear normal LW Onset: 1988 ; Pap Smear Abnormal Pers Hx Esophageal reflux 08/11/2003 05/07/2006 Overview: Gastroesophageal Reflux Disease Lumbago 09/24/2002 11/16/2020 Overview: Pain Low Back Encounters Date Type Department Care Team Description 04/28/2023 Refill [facility] [address] [facility] [address] [place] [address] Billie Landeros MD Refill (omeprazole (PRILOSEC) 20 MG capsule) 04/28/2023 Refill [facility] [address] [facility] [address] [facility] [address] [place] [address] Billie Landeros MD Refill (sertraline (ZOLOFT) 50 MG tablet) 04/25/2023 8:20 PM GREENS PLANTER E-Visit [facility] [address] [facility] [address] [place] [address] Billie Landeros MD Dx: Current mild episode of major depressive disorder without prior episode (HRC) from Last 3 Months Immunizations Name Administration Dates Next Due Flu Vac (3+ yrs) 01/28/2018, 5,01/12/2014,2012,02/18/2010,01/23/2009,02/11/1996 Flu Vac Preserv Free (3+yrs) 03/23/2012,01/19/20 08,01/21/2006 Fluzone Qiv Multidose Vial 0 .25 (6-35 Mos) 01/26/2019 HepB Adult (Heplisav-B, 19+ yrs, 2 dose series) 04/28/2022 Influenza [id number] 04/16/2009 Influenza IIV4 (Quadrivalent ) 0.5mL (60957) 01/29/2022,02/14/2021,12/31/2019,2016,02/05/2016,01/19/2015 Influenza, Unspecified Formulation 02/02,02/16/2008,01/19/2008,2006,01/21/2006,02/11/1996 Moderna Monovalent 12+ 02/14/2021,06/29/2020,03/2021 Pfizer Bivalent 12+ 01/29/2022 TDAP (BOOSTRIX) 07/26/2013 Td 01/21/2006 Zoster RZV (Shingrix) 09/17/2018,09/09/2017 Family History Medical History Relation Name Comments Colon Polyps Father Etienne Diabetes Father Etienne Diabetes, Type II Father Etienne Excessive sleepiness Father Etienne Heart Disease Father tEienne Dx mid 50s High Cholesterol Father Etienne Hypertension Father Etienne Sleep apnea Father Etienne Snoring Father Etienne Stroke Father Etienne Cancer Mother Saliva gland Cancer, Breast Mother Dx age 72 High Blood Pressure Mother Hypertension Mother Alcohol Abuse Maternal Grandfather Emphysema Maternal Grandmother Cancer, Colon Maternal Uncle 71 Heart Disease Paternal Grandfather Diabetes Paternal Grandmother Diabetes, Type II Paternal Grandmother Diabetes, Type II Paternal Uncle Cancer, Ovary Negative Family History Osteoporosis Negative Family History Thyroid Disorder Negative Family History Relation Name Status Comments Father Etienne (Age 71) colon poly at 65 Mother Alive Brother Alive Maternal Grandfather Maternal Grandmother (Age 72) Maternal Uncle Alive Paternal Grandfather Paternal Grandmother Paternal Uncle Social History Tobacco Use Types Packs/Day Years [...] on file Sexual Orientation Not on file Last Filed Vital Signs Vital Sign Reading Time Taken Comments Blood Pressure 137/92 04/28/2022 1:39 PM GREENS PLANTER Pulse 62 04/28/2022 1:39 PM GREENS PLANTER Temperature 36.4 ??C (97.6 ??F) 03/26/2016 11:[address] Respiratory Rate 16 12/16/2021 7:25 AM CDT Oxygen Saturation 97% 12/16/2021 7:25 AM CDT Inhaled Oxygen Concentration - - Weight 82.6 kg (182 lb) 08/13/2022 12:55 PM CDT Height 167.6 cm (5' 6) 08/13/2022 12:55 PM CDT Body Mass Index 29.38 08/13/2022 12:55 PM CDT Plan of Treatment Health Maintenance Due Date Last Done Comments HepB (2) 05/26/2022 04/28/2022 Cervical Cancer Screening 02/19/20232019, 12/08/2018, 09/17/2018, Additional history exists Mammogram 03/26/2023 03/26/2022, 11/20, 11/05/2019, Additional history exists Adult Preventive Visit 04/28/2023 , 02/20/2020, 09/17/2018, Additional history exists DTaP/Tdap/Td (2 - Tdap) 07/27/2023 07/26/2013, 01/21 Colonoscopy 08/31/2023 08/30/2020, 07/20, 11/29/2009 Diabetes Screening- (based on age and BMI) 04/28/2025 04/28/2022, 07/26/2013, 05/28/2012, Additional history exists Cholesterol 04/28/2027 04/28/2022, 08/20, 07/26/2013, Additional history exists Dexa 05/07/2032 05/07/2022 HIV Screening (Preventive Services) Completed 04/09/1999 Hep C Screening (Preventive Services) Completed 09/09/2017 Zoster/Shingles Completed 09/17/2018, 09/09/2017 COVID-19 Vaccine Completed 02/06/2023, 03/2022, 02/14/2021, Additional history exists Influenza Completed 02/06/2023, 01/18, 02/14/2021, Additional history exists HepA Aged Out No longer eligi ble based on patient's age to complete this topic Hib Aged Out No longer eligi ble based on patient's age to complete this topic IPV (Polio) Aged Out No longer eligi ble based on patient's age to complete this topic MCV4 Aged Out No longer eligi ble based on patient's age to complete this topic Pneumococcal Aged Out No longer eligi ble based on patient's age to complete this topic Advance Directives Latest Code Status on File Code Status Date Activated Date Inactivated Comments Full Code 04/04/2016 1:24 PM 04/04/2016 5:31 PM Code Status History Code Status Date Activated Date Inactivated Comments Full Code 08/08/2014 8:15 AM 08/08/2014 11:04 AM Care Teams Engineering Program Analyst Relationship Specialty Start Date End Date Billie Landeros MD [address] [facility] [address] [place] [address] PCP - General Internal Medicine 03/26/22
--- OUTSIDE RECORDS SUMMARY | 2023-06-02 09:55 | XMS_ITS | Encounter Summary ---
Author Name Unknown Organization [facility] Address [address] [place] [address] Care Team Providers Care Tool Maker Name Role Phone Billie Landeros MD Primary Care Provider [phone] Reason for Visit * Procedure/Equipment (Routine) - Incomplete Specialty Diagnoses / Procedures Referred By Contac t Referred To Contact Diagnoses Low back pain radiating to right leg Procedures XR Lumbar Spine 2 Views Nery Pang PA-C [address] [facility] [place] [address] Referral ID Status Reason Start Date Expiration Date V isits Requested Visits Authorized [id number] Incomplete 08/13/2022 11/12/2023 1 1 Encounter Details Date Type Department Care Team Description 08/13/2022 1:05 PM CDT Ancillary Procedure [facility] [address] [facility] [place] [address] Nery Pang PA-C [address] [facility] [place] [address] Low back pain radiating to right leg Social History Tobacco Use Types Packs/Day Years [...] on file documented as of this encounter Procedures Procedure Name Priority Date/Time Associated Diagnosis Comments XR LUMBAR SPINE 2 VIEWS Routine 08/13/2022 1:08 PM CDT Low back pain radiating to right leg documented in this encounter Results * XR Lumbar Spine 2 Views (08/13/2022 [...] unremarkablein appearance. Bowel gas pattern nonobstructive. Nery Pang PA-C RAD GD documented in this encounter Visit Diagnoses Diagnosis Low back pain radiating to right leg Lumbago documented in this encounter Care Teams Tool Maker Relationship Specialty Start Date End Date Billie Landeros MD [address] [facility] [address] [place] [address] PCP - General Internal Medicine 03/26/22 documented as of this encounter
--- OUTSIDE RECORDS SUMMARY | 2023-06-02 09:55 | XMS_ITS | Encounter Summary ---
Author Name Unknown Organization [facility] Address [address] [facility] [place] [address] Care Team Providers Care Sulfonator Operator Name Role Phone Billie Landeros MD Primary Care Provider [phone] Reason for Visit * Procedure/Equipment (Routine) - Incomplete Specialty Diagnoses / Procedures Referred By Contac t Referred To Contact Diagnoses Low back pain radiating to right leg Procedures XR Pelvis W Rt Lateral Hip Nery Pang PA-C [address] [facility] [place] [address] Referral ID Status Reason Start Date Expiration Date V isits Requested Visits Authorized [id number] Incomplete 08/13/2022 11/12/2023 1 1 Encounter Details Date Type Department Care Team Description 08/13/2022 1:10 PM CDT Ancillary Procedure [facility] [address] [facility] [place], [place] [address] Nery Pang PA-C [address] [facility] [place] [id number] Low back pain radiating to right leg [...] Name Priority Date/Time Associated Diagnosis Comments XR PELVIS W RT LATERAL HIP Routine 08/13/2022 1:09 PM CDT Low back pain radiating to right leg documented in this encounter Results * XR Pelvis W Rt Lateral Hip [...] Lumbago documented in this encounter Care Teams Sulfonator Operator Relationship Specialty Start Date End Date Billie Landeros MD [address] [place] [address] PCP - General Internal Medicine 03/26/22 documented as of this encounter
--- OUTSIDE RECORDS SUMMARY | 2023-06-02 09:55 | XMS_ITS | Encounter Summary ---
Author Name Unknown Organization [facility] Address [address] [place] [address] Care Team Providers Care Housekeeper/Custodian/Laundry Worker Name Role Phone Billie Landeros MD Primary Care Provider [phone] Reason for Referral * Procedure/Equipment (Routine) - Closed Specialty Diagnoses / Procedures Referred By Contac t Referred To Contact Diagnoses ERIC (obstructive sleep apnea) Procedures Positive Airway Pressure - Agata Johnson APRN, CNP [address] [address] Referral ID Status Reason Start Date Expiration Date Visits Re quested Visits Authorized [id number] Closed 08/08/2022 02/04/2023 1 1 Encounter Details Date Type Department Care Team Description 08/08/2022 8:00 AM CDT [facility] Pul[facility] Medicine [address] [place], [place] [address] Agata Tsai APRN, CNP [facility] [address] [id number] ERIC (obstructive sleep apnea) (Primary Dx) Social [...] this encounter Patient Instructions * Patient Instructions* Agata Tsai APRN, CONSTRUCTION OR LEAK GANG LABORER - 08/08/2022 8:00 AM CDT It was a pleasure seeing you today. If you have any additional questions, please call [phone]. Visit Summary: Diagnosis: [id number] Obstructive Sleep Apnea [facility] [phone] Plan: Start using CPAP with a nasal mask, if you do not like the mask you choose, there is a 30 day warranty on all masks, so get a new mask within the first 30 days because insurance will cover it. It is not uncommon to remove your mask in the middle of the night, if this happens, no worries, just put it on the next night. If you have any trouble acclimating to CPAP, put it on while reading or watchinig TV or when napping. Follow up 2-3 months after getting your machine, with a sleep WELT CUTTER/PA IT IS YOUR RESPONSIBILITY TO CALL YOUR INSURANCE COMPANY AND ASK THE FOLLOWING QUESTIONS: 1. IS THE CPAP MACHINE COVERED BY MY INSURANCE AND DOES IT REQUIRE A PRIOR AUTHORIZATION? ([facility]ERLY [facility] [id number]) 2. WHAT DURABLE MEDICAL EQUIPMENT COMPANY IS IN MY NETWORK? 3. HOW LONG IS MY RENTAL PERIOD PRIOR TO PURCHASE FOR THE CPAP MACHINE? Most Insurance companies require that you use your CPAP more than 4 hours, 21 out of 30 days, you have 90 days to do this, or they will not pay for your machine. They require a face to face visit with a Provider to sign off on your compliance. Billing Services ([phone] for questions about cost and length of rental period Sleep appointments: [phone] [facility]: [phone] Sleep Educators: [phone] for questions about machine or to request a change in settings documented in this encounter Progress Notes * Agata Tsai APRN, CNP - 08/08/2022 8:00 AM CDT CHIEF COMPLAINT: Snoring, Witnessed Apneas Subjective: Dana Allan is a 57 y.o. female who returns to discuss the results of her recent home sleep study. Please refer to Cristhian Monique's consultation note for details specific to initial complaints. INTERVAL MEDICAL HISTORY: reviewed SOCIAL HISTORY: , works warehouse selector as an accounting analyst PHYSICAL EXAM: LMP 02/15/2017 (Exact Date) GEN: alert and oriented x 3, pleasant affect HST RESULTS personally reviewed in detail with the patient: DATE: 07/18/22 RDI/PAYTON: 15/hr MIL: 16/hr 02 kenny: 87% RDI/PAYTON is used as a surrogate for AHI IMPRESSION AND PLAN: 1. [id number] Obstructive Sleep Apnea. We discussed the consequences of untreated ERIC, including increased risk for hypertension, stroke, heart failure, and fatigue-related motor vehicle accidents. We also discussed treatment options including APAP, mandibular repositioning device, weight loss, positional therapy, and surgery. She does already wear a mandibular repositioning device, which she believes she wore the night of the study. The MRD does not appear to be managing the snoring and apnea very well at all. At this time she wishes to start APAP 5-15 cm H20. Supplies will be obtainedfr [facility] in [place]. Will follow up in 3 months with a download. She agrees to return sooneron a prn basis. All of the patient's questions were answered. she states understanding and agreement with my assessment and plan as above. Total time 30 minutes, more than half spent in face to face counseling and coordination of care. Agata Tsai APRN, CNP documented in this encounter Plan of Treatment Not on file documented as of this encounter Visit Diagnoses Diagnosis ERIC (obstructive sleep apnea)- Primary Obstructive sleep apnea (adult) (pediatric) documented in this encounter Care Teams Housekeeper/Custodian/Laundry Worker Relationship Specialty Start Date End Date Billie Landeros MD [address] [place] [address] PCP - General Internal Medicine 03/26/22 documented as of this encounter
--- OUTSIDE RECORDS SUMMARY | 2023-06-02 09:55 | XMS_ITS | Encounter Summary ---
Author Name Unknown Organization [facility] Address [address] [place] [address] Care Team Providers Care Borough Coordinator Name Role Phone Billie Landeros MD Primary Care Provider [phone] Encounter Details Date Type Department Care Team Description 07/17/2022 Orders Only HIM DEPARTMENT ProviderKacey [place] [address] Social History Tobacco Use Types Packs/Day Years [...] Procedure Name Priority Date/Time Associated Diagnosis Comments SLEEP STUDY 07/17/2022 documented in this encounter Results * SLEEP STUDY (07/17/2022) Interface Provider DUMMY/OTHER/AR documented in this encounter Visit Diagnoses Not on filedocumented in this encounter Care Teams Borough Coordinator Relationship Specialty Start Date End Date Billie Landeros MD [address] [place] [address] PCP - General Internal Medicine 03/26/22 documented as of this encounter
--- OUTSIDE RECORDS SUMMARY | 2023-06-02 09:55 | XMS_ITS | Encounter Summary ---
Author Name Unknown Organization [facility] Address [address] [address] Care Team Providers Care Ct Technician Name Role Phone Billie Landeros MD Primary Care Provider [phone] Reason for Visit * Reason Comments Questions Encounter Details Date Type Department Care Team Description 09/30/2022 Telephone [facility] [address] [place] [address] Nery Pang, PABradC [address] [place] [address] Questions Social History Tobacco Use Types Packs/Day Years [...] as of this encounter Nursing Notes * Isacc Awan CMA - 09/30/2022 3:16 PM CDT LVM for Anneliese to see if she was still wanting to keep her appt scheduled with Nery on Thursday because Nery sent her results via [employer]. Please clarify if patient is okay with what was said through MyChart or if she should keep her in person appt. Isacc Awan CMA 09/30/2022, 3:17 PM documented in this encounter Plan of Treatment Not on file documented as of this encounter Visit Diagnoses Not on filedocumented in this encounter Care Teams Ct Technician Relationship Specialty Start Date End Date Billie Landeros MD [address] [facility] [address] [place] [address] PCP - General Internal Medicine 03/26/22 documented as of this encounter
--- OUTSIDE RECORDS SUMMARY | 2023-06-02 09:55 | XMS_ITS | Encounter Summary ---
Author Name Unknown Organization [facility] Address [address] [place] [address] Care Team Providers Care Supervisor General Name Role Phone Billie Landeros MD Primary Care Provider [phone] Reason for Visit * Procedure/Equipment (Routine) - Closed Specialty Diagnoses / Procedures Referred By Contac t Referred To Contact Diagnoses Kyphoscoliosis Lumbar radiculitis Procedures MR Lumbar Spine WO IV Cont Nery Pang PA-C [address] [facility] [place] [address] Referral ID Status Reason Start Date Expiration Date Visits Re quested Visits Authorized [id number] Closed 08/13/2022 11/12/2023 1 1 Encounter Details Date Type Department Care Team Description 09/22/2022 10:20 AM CDT Ancillary Procedure [facility] [address] [place], [place] [address] Nery Pang PA-C [address] [facility] [place] [id number] Kyphoscoliosis; Lumbar radiculitis Social History Tobacco Use Types Packs/Day Years [...] Procedure Name Priority Date/Time Associated Diagnosis Comments MR LUMBAR SPINE WO IV CONT Routine 09/22/2022 10:19 AM CDT Kyphoscoliosis Lumbar radiculitis documented in this encounter Results * MR Lumbar Spine [...] degeneration(4-83%). Frequency percentages adapted from Etelvina W, Luanjalimer PH, [place] B, etal. AJNR AM J Neuroradiol 2015:36:811-16. Nery Pang PA-C RAD MRI documented in this encounter Visit Diagnoses Diagnosis Kyphoscoliosis Scoliosis (and kyphoscoliosis), idiopathic Lumbar radiculitis Thoracic or lumbosacral neuritis or radiculitis, unspecified documented in this encounter Care Teams Supervisor General Relationship Specialty Start Date End Date Billie Landeros MD [address] [place] [address] PCP - General Internal Medicine 03/26/22 documented as of this encounter
--- OUTSIDE RECORDS SUMMARY | 2023-06-02 09:55 | XMS_ITS | Encounter Summary ---
Author Name Unknown Organization [facility] Address [address], [place] [address] Care Team Providers Care Extension Specialist Name Role Phone Billie Landeros MD Primary Care Provider [phone] Reason for Referral * Procedure/Equipment (Routine) - Closed Specialty Diagnoses / Procedures Referred By Contac t Referred To Contact Diagnoses UARS (upper airway resistance syndrome) Snoring Witnessed episode of apnea Excessive daytime sleepiness GERD without esophagitis Procedures Sleep Diagnostic Tests: Daniel Hickman APRN, CNP [address] [place] [address] Referral ID Status Reason Start Date Expiration Date Visits Re quested Visits Authorized [id number] Closed 06/24/2022 09/23/2023 1 1 Reason for Visit * Procedure/Equipment (Routine) - Closed Specialty Diagnoses / Procedures Referred By Contac t Referred To Contact Diagnoses UARS (upper airway resistance syndrome) Snoring Witnessed episode of apnea Excessive daytime sleepiness GERD without esophagitis Procedures Sleep Diagnostic Tests: Daniel Hickman APRN, CNP [address] [place] [address] Referral ID Status Reason Start Date Expiration Date Visits Re quested Visits Authorized [id number] Closed 06/24/2022 09/23/2023 1 1 Encounter Details Date Type Department Care Team Description 07/17/2022 10:30 AM CDT - 07/17/2022 11:59 PM CDT [facility] [address] [facility] [address] [place] [address] Discharge Disposition: Home Social History Tobacco Use Types Packs/Day Years [...] on file documented as of this encounter Medications at Time of Discharge Medication Sig Dispensed Refills Start Date End Date calcium carbonate-vitamin D 600-400 MG-UNIT tablet Take 1 Tablet by mouth daily. 0 11/09/2009 colestipol (COLESTID) 1 g tablet Take 1 Tablet (1 g) by mouth two times a day. 180 Tablet 3 09/03/2021 Multiple Vitamins-Minerals (MULTIVITAMIN OR) Take 1 tablet by mouth daily (every 24 hours). 100 13 10/18/2004 omeprazole (PRILOSEC) 20 MG capsule Take 1 Capsule (20 mg) by mouth daily. Take 1 hour before a meal. 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 90 Tablet 3 04/28/2022 04/28/2023 documented as of this encounter Progress Notes * Tish Chung MD - 07/17/2022 11:59 PM CDT NAME: FAITH LAMB CSN: [id number] CLINIC NOTE HOME POLYSOMNOGRAM DATE OF SERVICE: 07/18/2022 : 1965 INDICATION: Possible sleep-disordered breathing. Total recording time 9 hours and 40 minutes with mild to loud snoring that was variable. EKGs showed occasional PVCs; baseline saturation 97%, low saturation 87%. There were 40 obstructive apneas, 2 mixed apneas, 1 central apnea, 103 hypopneas. Respiratory disturbance index 15.1, slightly worse in the supine position. IMPRESSION AND RECOMMENDATIONS: Moderate obstructive sleep apnea. She will follow up in Sleep Clinic. TISH CHUNG MD STEPHANIA/AQS /[id number] * Melyssa Lima - 07/17/2022 10:30 AM CDT This is a type III unattended home sleep test (diagnostic). This study was scored following 3% AASMhypopnea rules. There was 9 hours 40 minutes of recording time with an estimated sleep efficiency of 90%. The overall signal quality was good. Snoring ranged from mild to loud throughout the recording. The EKG appeared NSR with occasional PVCs and PACs (see epochs 168 and 488 for examples). documented in this encounter Plan of Treatment Scheduled Orders Name Type Priority Associated Diagnoses Orde r Schedule Sleep Diagnostic Tests: HST Sleep Study Routine UARS (upper airway resistance syndrome) Snoring Witnessed episode of apnea Excessive daytime sleepiness GERD without esophagitis 1 Occurrences starting 07/17/2022 until 07/17/2022 documented as of this encounter Visit Diagnoses Diagnosis Obstructive sleep apnea (adult) (pediatric)- Primary UARS (upper airway resistance syndrome) Other organic sleep disorders Snoring Other dyspnea and respiratory abnormality Witnessed episode of apnea Excessive daytime sleepiness GERD without esophagitis Esophageal reflux documented in this encounter Care Teams Extension Specialist Relationship Specialty Start Date End Date Billie Landeros MD [address] [place] [address] PCP - General Internal Medicine 03/26/22 documented as of this encounter
--- NOTE | 2023-06-02 10:15 | MM_ITS ---
Patient: FAITH LAMB Facility:?[facility] Patient ID:?[id number] Site Patient ID:?[id number] Site :?1965 Study:?XRay-Breast Bilateral 3D W/CAD-06/02/2023 2:44:58 PM Ordering Physician:Vonda Lloyd Final Report: BILATERAL DIGITAL SCREENING MAMMOGRAM WITH COMPUTER-AIDED DETECTION WITH TOMOSYNTHESIS CLINICAL HISTORY: Routine screening exam. COMPARISON: None available. TECHNIQUE: Digital mammogram in CC and MLO projections including computer-aided detection (CAD). BREAST COMPOSITION: There are scattered areas of fibroglandular density. FINDINGS: RIGHT Breast: No suspicious findings. LEFT Breast: Focal asymmetric density upper outer quadrant 7 cm from the nipple. IMPRESSION: LEFT breast asymmetry/mass. RECOMMENDATIONS: Additional mammographic views of the LEFT breast including 3D spot compression cc/MLO. LEFT breast ultrasound may also be required. [facility] will contact the patient. BI-RADS Category 0: Incomplete: Need Additional Imaging Evaluation and/or Prior Mammograms for Comparison. A lay language report of this examination will be provided to the patient. Dictated by Quintin Todd MD @ 06/23/2023 8:41:11 AM/CRL:tyrel PT/Dictated by: Quintin Todd MD @ 06/23/2023 8:41:00 AM Signed by:?Quintin Todd MD @06/23/2023 11:34:02 AM (Electronic Signature)
== END 2023-06-02 09:50 | disposition home or self-care (01) ==
LOC: MAMMO 09:50
PROVIDERS: PCP Internal Medicine; Visit Provider Internal Medicine
DX: Z12.31 Encounter for screening mammogram for malignant neoplasm of breast (principal); N63.20 Unspecified lump in the left breast, unspecified quadrant
CPT/HCPCS: 77063; 77067

== ENCOUNTER 2023-07-07 09:26 | Outpatient (CLI) | payer BC, SELFPAY ==
--- NOTE | 2023-07-07 09:45 | MM_ITS ---
Patient: FAITH LAMB Facility:?[facility] Patient ID:?[id number] Site Patient ID:?[id number]. Site :?1965 Study:?XRay-Breast Left 3D W/CAD-07/07/2023 10:10:22 AM Ordering Physician:?Vonda Brice Final Report: DIGITAL DIAGNOSTIC LEFT MAMMOGRAM USING TOMOSYNTHESIS AND COMPUTER-AIDED DETECTION LEFT BREAST ULTRASOUND CLINICAL HISTORY: LEFT breast mass/asymmetry. COMPARISON: 07/07/2023. TECHNIQUE: Digital LEFT mammogram in two projections. Real-time ultrasound imaging of LEFT breast with imaging documentation. Scanning was performed by both the technologist and the radiologist. BREAST COMPOSITION: There are areas of scattered fibroglandular density. FINDINGS: 3D spot compression CC/MLO LEFT breast mammogram images submitted. Post excisional biopsy changes are noted along with needle biopsy procedures. Asymmetric density is present within the upper outer quadrant along with a calcified lymph node. Findings are likely postprocedural related. Patient has history of radial scar resected. Targeted LEFT breast ultrasound performed in the upper outer quadrant 1 o`clock 5-7 cm from the nipple. Heterogeneous density is present corresponding with the mammogram findings along with a benign calcified lymph node. Findings are most consistent with radial scar/fat necrosis/post procedural scarring. Outside comparison studies have not become available. IMPRESSION: Probably benign scar tissue LEFT breast upper outer quadrant. RECOMMENDATIONS: Short-term interval follow-up unilateral LEFT breast mammogram in 6 months. Results and recommendations discussed with the patient. BI-RADS Category 3: Probably benign A lay language report of this examination will be provided to the patient. Dictated by Quintin Todd MD @ 07/07/2023 10:36:05 AM jj/Dictated by: Quintin Todd MD @ 07/07/2023 10:36:00 AM Signed by:?Quintin Todd MD @07/07/2023 1:45:48 PM (Electronic Signature)
--- NOTE | 2023-07-07 10:15 | US_ITS ---
Patient: FATIH LAMB Facility:?[facility] Patient ID:?[id number] Site Patient ID:?[id number]. Site :?1965 Study:?US-Breast Left DR BECKFORD TO READ-07/07/2023 10:30:29 AM Ordering Physician:?NICCI BASURTO Final Report: PLEASE SEE DIGITAL DIAGNOSTIC LEFT MAMMOGRAM PERFORMED SAME DAY CRL:marley roach/Dictated by: Quintin Beckford MD @ 07/07/2023 10:36:00 AM Signed by:?Quintin Beckford MD @07/07/2023 3:03:09 PM (Electronic Signature)
== END 2023-07-07 09:27 | disposition home or self-care (01) ==
LOC: MAMMO 09:26
PROVIDERS: PCP Internal Medicine; Visit Provider Internal Medicine
DX: N63.20 Unspecified lump in the left breast, unspecified quadrant (principal); R92.8 Other abnormal and inconclusive findings on diagnostic imaging of breast
CPT/HCPCS: 76642; 77065; G0279

== ENCOUNTER 2023-09-01 06:22 | Outpatient (CLI) | payer BC, SELFPAY ==
--- OUTSIDE RECORDS SUMMARY | 2023-09-01 06:26 | XMS_ITS | Clinical Summary ---
Author Name Unknown Organization [facility] Address [place], [place] [address] Care Team Providers Care Solicitor Patent Name Role Phone Tevin Landeros Primary Care Provider Allergies Active Allergy Reactions Criticality Noted Date Comments Amitriptyline Anxiety 12/02/2017 Medications Medication Sig Dispensed Refills Start Date End Date Status CALCIUM CARBONATE-VITAMIN D3 ORAL Take by mouth once daily. Active estradiol (ESTRACE) 0.1 mg/g vaginal cream Insert into the vagina at bedtime if needed. Active multivit with iron,minerals (MULTIVITAMIN AND MINERALS ORAL) Take by mouth once daily. Active omeprazole (PRILOSEC OTC) 20 mg tablet Take 20 mg by mouth once daily. Active Lactobacillus acidophilus (PROBIOTIC ACIDOPHILUS ORAL) Take by mouth once daily. Active sertraline (ZOLOFT) 50 mg tablet Take 50 mg by mouth once daily. Active oxyCODONE-acetaminoph en, 5-325 mg, (PERCOCET) 5-325 mg per tabletIndications:S/P laparoscopic cholecystectomy Take 1-2 tablets by mouth every 4 hours if needed for Pain Max acetaminophen dose: 4000mg in 24 hrs. 20 tablet 12/07/2017 Active iron bistomer,ps-FA-B-C#12-s ucc 65 mg-65 mg -1,000 mcg (24) tab Take by mouth. A ctive HYDROcodone-acetamino phen, 5-325 mg, (NORCO) per tabletIndications:Bhaskar al colic on left side Take 1-2 tablets by mouth every 6 hours if needed for Pain Max acetaminophen dose: 4000 mg in 24 hrs. 8 tablet 03/30/2020 Active ibuprofen (ADVIL; MOTRIN) 600 mg tabletIndications:Bhaskar marroquin colic on left side Take 1 tablet by mouth every 6 hours if needed. Maximum of 3200 mg in 24 hours. 30 tablet 03/30/2020 Active ondansetron (ZOFRAN ODT) 4 mg disintegrating tabletIndications:Bhaskar al colic on left side Place 1-2 tablets on the tongue every 8 hours if needed for Nausea/Vomiting. 15 tablet 03/30/2020 Active Encounters Date Type Department Care Team Description 08/11/2023 Lab Requisition [facility] [phone] Vonda Brice MD from Last 3 Months Social History Tobacco Use Types Packs/Day Years [...] Comments Blood Pressure 141/72 03/30/2020 12:30 AM [employer] Pulse 70 03/29/2020 11:27 PM [employer] Temperature 36.5 ??C (97.7 ??F) 03/29/2020 9:52 PM CS T Respiratory Rate 19 03/29/2020 9:52 PM [employer] Oxygen Saturation 95% 03/30/2020 12:30 AM [employer] Inhaled Oxygen Concentration - - Weight 74.8 kg (165 lb) 03/29/2020 9:52 PM [employer] Height 167.6 cm (5' 6) 03/29/2020 9:52 PM [employer] Body Mass Index 26.63 03/29/2020 9:52 PM [employer] Plan of Treatment Health Maintenance Due Date Last Done Comments Tdap 1975 Depression screening for age 12+ 1976 HIV for age 15-65 1979 BMI (ht and wt on same day) for age 18+ 1982 Hepatitis C screening for ag e 18-79 1982 Tetanus booster 1984 Colonoscopy through age 75 2009 Lipids for age 45-75 2009 Mammogram for age 45-75 2009 Zoster (shingles) series for age 50+ (1 of 2) 2014 COVID-19 vaccine series ( season) 2022 01/29/2022 Influenza for age 50-64 12/20/2023 Pap test for age 21-65 08/10/2026 , 08/11/2023 Pneumococcal series for age 6-64 Aged Out No longer eligible b ased on patient's age to complete this topic Procedures Procedure Name Priority Date/Time Associated Diagnosis Comments LAB TRACKING EVENT Routine 08/11/2023 8: 20 AM CDT BOTTLE MACHINE OPERATOR THIN PREP PAP SCREEN IMAGED Routine 08/11/2023 8:20 AM CDT HPV THIN PREP Routine 08/11/2023 8:20 AM CDT from Last 3 Months Results * LAB TRACKING EVENT (08/11/2023 8:20 AM CDT) Other (Other) Client Collect / Unknown 08/11/2023 8:20 AM CDT 08/11/2023 3:59 PM CDT Vonda Brice MD LAB BILL ONLY [facility] [address] [place] [address], * BOTTLE MACHINE OPERATOR THIN PREP PAP SCREEN IMAGED (08/11/2023 8:20 AM CDT) Case Report Gynecologic Cytology Report ? Case: [id number] ? Authorizing Provider: ??Vonda Brice MD ?Collected: ? 08/11/2023 0820 ? Ordering Location: ? [facility] ?Received: ?08/12/2023 0856 ? First Screen: ?Mcmullen, Rebecca ? Rescreen: ?Foreign [place] ? Specimen: ?BOTTLE MACHINE OPERATOR ThinPrep Vial Screening, Cervical/Vaginal ? 08/23/2023 9:28 AM T [facility] INTERPRETATION/ RESULT NEGATIVE FOR INTRAEPITHELIAL LESION OR MALIGNANCY (NIL) (none) 08/23/2023 9:28 AM [facility] NISM(S) Fungal organisms morphologically consistent with Yessi species 08/23/2023 9:28 AM T [facility] SPECIMEN ADEQUACY Satisfactory for evaluation No endocervical component seen 08/23/2023 9:28 AM CDT [facility] HPV REQUEST HPV and PAP 08/23/2023 9:28 AM CDT [facility] Date of LMP 08/23/2023 9:28 AM CDT [facility] Comment:2014 Last Pap Date 04/21/2019 08/23/2023 9:28 AM CDT [facility] Comment:normal Abnormal Pap or [place] Bx in last 5 years Yes 08/23/2023 9:28 AM CDT [facility] Menstrual Status Postmenopausal 08/23/2023 9:28 AM CDT [facility] [place] Bx Done Today No 08/23/2023 9:28 AM CDT [facility] Additional Information 08/23/2023 9:28 AM CDT [facility] Comment: Interpreted at [facility] - [address] [facility]. [address] [address] Automated Review Successful 08/23/2023 9:28 AM CDT [facility] Comment:Specimen processed s uccessfully by automated gambling box person device, ThinPrep Imaging System, [employer] ANCILLARY TESTING BOTTLE MACHINE OPERATOR HPV Ordered, Please see separate report 08/23/2023 9:28 AM CDT [facility] Note The pap test is a screening technique, not a diagnostic procedure. It is used primarily to screen for squamous cancers and precursor lesions. Published studies have shown that it is subject to both false negative and false positive results. The pap test should not be used as the sole means to diagnose or exclude pre-malignant and malignant lesions. 08/23/2023 9:28 AM CDT [facility] Other (Cervical/Vagina l) 08/11/2023 8:20 AM CDT 08/12/2023 8:56 AM CDT Vonda Brice MD PATHOLOGY/CYTOLOGY [facility] [address] [place] [address], * HPV HIGH RISK (08/11/2023 8:20 AM CDT) TYPE 16 Negative Negative 08/13/2023 3:37 PM CDT [facility] TYPE 18 Negative Negative 08/13/2023 3:37 PM CDT [facility] OTHER HIGH RISK TYPES Negative Negative 08/13/2023 3:37 PM CDT [facility] Other (Cervical/Vagina l) 08/11/2023 8:20 AM CDT 08/12/2023 8:56 AM CDT Narrative [facility] - 08/13/2023 3:37 PM CDT HPV types 16, 18, 31, 33, 35, 39, 45, 51, 52, 56, 58, 59, 66 and 68 DNA were undetectable or below the pre-set threshold. Methodology: Elida Dc 4800 HPV Test Vonda Brice MD MICROBIOLOGY [facility] [address] [place] [id number], from Last 3 Months Advance Directives * Full Code (Latest Code Status on File) Date Activated Date Inactivated Comments 12/07/2017 11:29 AM 12/07/2017 4:52 PM Care Teams Solicitor Patent Relationship Specialty Start Date End Date Tevin Landeros PCP - General Internal Medicine 12/03/17
--- OUTSIDE RECORDS SUMMARY | 2023-09-01 06:26 | XMS_ITS | Clinical Summary ---
Author Name Unknown Organization [facility] Address [address] [place] [address] Care Team Providers Care Diamond Sawer Name Role Phone Elisa Landeros MD Primary Care Provider [phone] Source Comments You are receiving this document as you are listed as the primary care provider,follow-up provider, or the patient has been referred to you for consultation.This is in compliance with the Medicare and[facility] E[facility] Incentive Program,which states Providers who transition their patient to another setting of careor provider of care or refers their patient to another provider of care shouldprovide summary care record for each transition of care or referral. Varthana Allergies Active Allergy Reactions Criticality Noted Date Comments Amitriptyline Other, see comments,Tachycardia 0 07/08/2002 anxiety Medications Medication Sig Dispensed Refills Start Date End Date Status Multiple Vitamins-Minerals (MULTIVITAMIN OR) Take 1 tablet by mouth daily (every 24 hours). 100 13 10/18/2004 Active calcium carbonate-vitamin D 600-400 MG-UNIT tablet Take 1 Tablet by mouth daily. 11/09/2009 Active colestipol (COLESTID) 1 g tablet Take 1 Tablet (1 g) by mouth two times a day. 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 90 Tablet 04/28/2023 Active omeprazole (PRILOSEC) 20 MG capsule Take 1 Capsule (20 mg) by mouth daily. Take 1 hour before a meal. 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 90 Tablet 04/28/2023 Active omeprazole (PRILOSEC) 20 MG capsule Take 1 Capsule (20 mg) by mouth daily. Take 1 hour before a meal. 90 Capsule 04/28/2023 Active Active Problems Problem Noted Date Diagnosed Date ERIC on CPAP 08/08/2022 Overview: HST 07/18/22 RDI 15/hr MIL 16/hr O2 kenny: 87% APAP 5-15 cm H2O [place] Kidney stones 11/25/2019 Overview: Recurrence: 2019: calcium oxalate from 03/2020 stoen analysis Cervical high risk HPV (human papillomavirus) te st positive 09/22/2017 Overview: [facility] Review: History: 2018: NILM, HPV+ (non [...] Lumbago 09/24/2002 11/16/2020 Overview: Pain Low Back Immunizations Name Administration Dates Next Due Flu Vac (3+ yrs) 01/28/2018, 5,01/12/2014,2012,02/18/2010,01/23/2009,02/11/1996 Flu Vac Preserv Free (3+yrs) 03/23/2012,01/19/20 08,01/21/2006 Fluzone Qiv Multidose Vial 0 .25 (6-35 Mos) 01/26/2019 HepB Adult (Heplisav-B, 19+ yrs, 2 dose series) 04/28/2022 Influenza B6B2-52 04/16/2009 Influenza IIV4 (Quadrivalent ) 0.5mL (96654) 01/29/2022,02/14/2021,12/31/2019,2016,02/05/2016,01/19/2015 Influenza, Unspecified Formulation 02/02,02/16/2008,01/19/2008,2006,01/21/2006,02/11/1996 Moderna Monovalent 12+ 02/14/2021,06/29/2020,03/2021 Pfizer Bivalent 12+ 01/29/2022 TDAP (BOOSTRIX) 07/26/2013 Td 01/21/2006 Zoster RZV (Shingrix) 09/17/2018,09/09/2017 Family History Medical History Relation Name Comments Colon Polyps Father Etienne Diabetes Father Etienne Diabetes, Type II Father Etienne Excessive sleepiness Father Etienne Heart Disease Father Etienne Dx mid 50s High Cholesterol Father Etienne [...] Comments Blood Pressure 137/92 04/28/2022 1:39 PM [employer] Pulse 62 04/28/2022 1:39 PM [employer] Temperature 36.4 ??C (97.6 ??F) 03/26/2016 11:26 [...] 07/26/2013, 01/21 Colonoscopy 08/31/2023 08/30/2020, 07/20, 11/29/2009 Cholesterol 04/28/2027 04/28/2022, 08/20, 07/26/2013, Additional history [...] Procedure Name Priority Date/Time Associated Diagnosis Comments DXA BONE DENSITY SPINE/HIP Routine 05/07/2022 11:33 AM [employer] Post-menopause LIPID PANEL & DIRECT LDL (IF NEEDED) Routine 04/28/2022 2:26 PM [employer] Routine physical examination MM MAMMOGRAM SCREENING BILAT W 3D GERRY W CAD Routine 03/26/2022 2:07 PM [employer] ENDOSCOPY, COLON, SCREENING/DIAGNOSTI C Routine 08/30/2020 1:00 PM CDT Special screening for malignant neoplasms, colon PAP TEST Routine 02/20/2020 11:04 AM [employer] Screening for malignant neoplasm of cervix HEPATITIS C ANTIBODY, WITH REFLEX Routine 09/09/2017 10:57 AM CDT Special screening examination for viral disease HIV ANTIBODY Routine 04/09/1999 10:48 AM [employer] from Last 3 Months or Most Recently Relevant to Health Maintenance Results * DXA Bone Density Spine/Hip (05/07/2022 11:33 AM [employer]) Anatomical Region Laterality Modality Lower Extremity, Spine, Hip, L-Spine Other Narrative 05/14/2022 11:43 AM [employer] CLINIC DXA REPORT Patient Name: ??Dana Allan Densitometer: [employer] DISCOVERY A Appt Dept/Resource: Tria Bone Density TRIA BONE 5 OSTEOPOROSIS RISK FACTORS FROM PATIENT QUESTIONNAIRE: ?? Demographics Age: 56 y.o. Gender: Female Height: 5' 5.59 (1.666 m) Height at age 24: 65 Weight: 179 lb 6.4 oz (81.4 kg) Race: Medical/Surgical History Menstrual periods: None Age of menopause: 51 ?? Able to stand from a chair easily without use of the arms?: Yes, easily How many falls indoors/outdoors within the last 12 months?: 0 History of fractures in parents: No History of previous fractures?: No ?? Hip replacement?: No Oral cortisone or steroid medication for more than 3 months?: No ?? Currently or have taken medications to treat osteoporosis?: No ?? Taking any aromatase inhibitor medication for breast cancer - anti-estrogen excluding tamoxifen?: No ?? Have had the following medical conditions: None Dietary/Habit Alcohol 3 units or more per day on average?: No Currently smoking tobacco? No Daily servings of calcium rich food: 1 Do you take a daily calcium supplement?: Yes, once per day BONE MINERAL DENSITY: Lumbar Spine Vertebrae Included: L1;L2;L3;L4 Bone Mineral Density (gm/cm2): 1.106 T-Score: 0.8 Z-Score: 2 Total Hip Bone Mineral Density (gm/cm2): 0.988 (RIGHT) T-Score: 0.4 Z-Score: 1.2 Femoral Neck Bone Mineral Density (gm/cm2): 0.821 T-Score: -0.2 Z-Score: 0.9 COMPARISON TO PRIOR STUDY: This is a baseline bone density test (first one at [facility]) VERTEBRAL FRACTURE ASSESSMENT: Not done ASSESSMENT: 1. Normal bone mineral density, based on T-score(s) at all axial skeletal sites 2. Patient is at low risk of fracture, based on age, fracture history, bone mineral density at all skeletal sites, and presence or absence of other risk factors. RECOMMENDATIONS: ?? 1. Maintain appropriate calcium and vitamin D intake 2. Repeat DXA in 10 years unless clinical circumstances changes warranting bone densitometry sooner. FRAX Explanation: The 10 year risks of hip and major osteoporotic fractures (clinical spine, forearm, hip or shoulder fracture) are calculated by the FRAX algorithm based on femoral neck bone density, age, gender, race/ethnicity, weight, height, previous fracture, parental hip fracture, smoking status, glucocorticoid intake, history of RA, secondary osteoporosis, and high alcohol consumption. FRAX Fracture Risk Categories in terms of major osteoporotic fractures: < 10% = low fracture risk ? 10% and <15% = mildly increased fracture risk ? 15% and <20% = moderately increased fracture risk ? 20% and <30% = high fracture risk ? 30% = very high fracture risk National Osteoporosis Foundation Treatment Guideline A clinician may consider FDA-approved medical therapies in postmenopausal women and men aged 50 years and older, if one or more of the following is present (clinical correlation required and therapy may not always be indicated): 1. The patient has a hip or vertebral fracture. 2. T-score ? -2.5 at the femoral neck, hip, or spine after appropriate evaluation to exclude secondary causes. 3. Low bone mass (T-score between -1.0 and -2.5 at the femoral neck, hip or spine) and a 10-year probability of a hip fracture ? 3% or a 10-year probability of a major osteoporosis-related fracture ? 20% based on the FRAX scores. Elisa Landeros MD RAD DEXA * Lipid Panel and Direct LDL (If Needed) (04/28/2022 2:26 PM [employer]) Pathologist [facility] Cholesterol 176 0 - 199 mg/dL 04/28/2022 5:46 PM [employer] [facility] Triglyceride 117 <=149 mg/dL 04/28/2022 5:46 PM [employer] [facility] HDL Cholesterol 56 >=40 mg/dL 04/28/2022 5:46 PM [employer] [facility] LDL, Calculated 97 <130 mg/dL 04/28/2022 5:46 PM [employer] [facility] Non HDL Chol, Calculated 120 <=159 mg/dL 04/28/2022 5:46 PM [employer] [facility] Cholesterol/HDL Ratio 3.1 04/28/2022 5:46 PM [employer] [facility] Hours Fasting Unknown 04/28/2022 5:46 PM [employer] [facility] Blood Venipuncture / Unknown 04/28/2022 2:26 PM [employer] 04/28/2022 2:26 PM [employer] Elisa Landeros MD LAB_1 [facility] [address] [place] [address], [facility] [address] [place] [address], [facility] [phone] * MM Mammogram Screening Bilat W 3D Gerry W CAD (03/26/2022 2:07 PM [employer]) Anatomical Region Laterality Modality Breast Bilateral Mammography Impressions 03/26/2022 2:50 PM [employer] : ACR BI-RADS Category 1: Negative RECOMMENDATION: Follow Up Imaging in 12 months - Bilateral The results and recommendations of this examination will be communicated to the patient. Narrative 03/26/2022 2:50 PM [employer] MM MAMMOGRAM SCREENING BILAT W 3D GERRY W CAD performed on 03/26/22 Compared to: 12/17/2020 MM Mammogram Screening Bilat W 3D Gerry W CAD, 11/05/2019 MM Mammogram Screening Bilat W 3D Gerry W CAD, and 07/30/2018 MM Mammogram Screening Bilat W 3D Gerry W CAD ?? FINDINGS: Bilateral screening mammogram was performed with the assistance of Computer-Aided Detection and breast tomosynthesis. The breasts have scattered areas of fibroglandular density. There is no radiographic evidence of malignancy. ?? Elisa Landeros MD RAD CASTRO * Endoscopy, colon, diagnostic (08/30/2020 1:00 PM CDT) 08/30/2020 1:00 PM CDT Narrative [facility]) - 08/30/2020 1:00 PM CDT Patient Name: Dana Allan Procedure Date: 08/30/2020 1:00 PM Date of : 1965 Admit Type: Outpatient Age: 55 Gender: Female Note Status: Finalized Attending MD: Reggie Winkler , Procedure: ? Colonoscopy Indications: ? Colon cancer screening in patient at ? increased risk: Family history of ? colon polyps in multiple 1st-degree ? relatives (parents with polyps in ? their 60-70s), Last colonoscopy: ? July 2015 Providers: ? Erika Casanova, [place] Referring MD: ?Elisa Landeros MD Medicines: ? Midazolam 3 mg IV, Fentanyl 150 ? micrograms IV Complications: ? No immediate complications. Procedure: ? After I obtained informed consent, ? the scope was passed under direct ? vision. Throughout the procedure, the ? patient's blood pressure, pulse, and ? oxygen saturations were monitored ? continuously. The [id number] was ? introduced through the anus and ? advanced to the cecum, identified by ? appendiceal orifice and ileocecal ? valve. The colonoscopy was performed ? without difficulty. The patient ? tolerated the procedure well. The ? quality of the bowel preparation was ? good. Findings: ? The perianal and digital rectal examinations were ? normal. ? Retroflexion in the right colon was performed. ? Five sessile polyps were found in the sigmoid colon, ? transverse colon (3) and ascending colon. The polyps ? were 3 to 5 mm in size. These polyps were removed ? with a cold snare. Resection and retrieval were ? complete. Verification of patient identification for ? the specimen was done. Estimated blood loss was ? minimal. ? Multiple small and large-mouthed diverticula were ? found in the sigmoid colon. ? The exam was otherwise normal throughout the examined ? colon. Moderate Sedation: ? Moderate (conscious) sedation was administered by the ? endoscopy nurse and supervised by the endoscopist. ? The following parameters were monitored: oxygen ? saturation, heart rate, blood pressure, and response ? to care. Total physician intraservice time was 25 ? minutes. Impression: ?- Five 3 to 5 mm polyps in the ? sigmoid colon, in the transverse ? colon (3) and in the ascending colon, ? removed with a cold snare. Resected ? and retrieved. ? - Diverticulosis in the sigmoid colon. Recommendation: ?- Discharge patient to home. ? - High fiber diet. ? - Await pathology results. ? - Repeat colonoscopy for surveillance ? based on pathology results. ? - The findings and recommendations ? were discussed with the patient. Procedure Code(s): ?? --- Professional --- ? 26662, Colonoscopy, flexible; with ? removal of tumor(s), polyp(s), or ? other lesion(s) by snare technique ? 81634, Moderate sedation; each ? additional 15 minutes intraservice ? time ? G0500, Moderate sedation services ? provided by the same physician or ? other qualified health care ? professional performing a ? gastrointestinal endoscopic service ? that sedation supports, requiring the ? presence of an independent trained ? observer to assist in the monitoring ? of the patient's level of ? consciousness and physiological ? status; initial 15 minutes of ? intra-service time; patient age 5 ? years or older (additional time may ? be reported with 52270, as ? appropriate) Diagnosis Code(s): ?? --- Professional --- ? Z83.71, Family history of colonic ? polyps ? K63.5, Polyp of colon ? K57.30, Diverticulosis of large ? intestine without perforation or ? abscess without bleeding CPT copyright 2019 [employer]. All rights reserved. The codes documented in this report are preliminary and upon customer service supervisor review may be revised to meet current compliance requirements. Reggie Winkler, 08/30/2020 2:11:50 PM Number of Addenda: 0 Note Initiated On: 08/30/2020 1:00 PM ? Endoscopy Report Procedure Note Provider, MD Kacey - 08/30/2020 Patient Name: Dana Allan Procedure Date: 08/30/2020 1:00 PM Date of : 1965 Admit Type: Outpatient Age: 55 Gender: Female Note Status: Finalized Attending MD: Reggie Winkler , Procedure: Colonoscopy Indications: Colon cancer screening in patient at increased risk: Family history of colon polyps in multiple 1st-degree relatives (parents with polyps in their 60-70s), Last colonoscopy: July 2015 Providers: Reggie Winkler, Erika Nascimento RN Referring MD: Elisa Landeros MD Medicines: Midazolam 3 mg IV, Fentanyl 150 micrograms IV Complications: No immediate complications. Procedure: After I obtained informed consent, the scope was passed under direct vision. Throughout the procedure, the patient's blood pressure, pulse, and oxygen saturations were monitored continuously. The [id number] was introduced through the anus and advanced to the cecum, identified by appendiceal orifice and ileocecal valve. The colonoscopy was performed without difficulty. The patient tolerated the procedure well. The quality of the bowel preparation was good. Findings: The perianal and digital rectal examinations were normal. Retroflexion in the right colon was performed. Five sessile polyps were found in the sigmoid colon, transverse colon (3) and ascending colon. The polyps were 3 to 5 mm in size. These polyps were removed with a cold snare. Resection and retrieval were complete. Verification of patient identification for the specimen was done. Estimated blood loss was minimal. Multiple small and large-mouthed diverticula were found in the sigmoid colon. The exam was otherwise normal throughout the examined colon. Moderate Sedation: Moderate (conscious) sedation was administered by the endoscopy nurse and supervised by the endoscopist. The following parameters were monitored: oxygen saturation, heart rate, blood pressure, and response to care. Total physician intraservice time was 25 minutes. Impression: - Five 3 to 5 mm polyps in the sigmoid colon, in the transverse colon (3) and in the ascending colon, removed with a cold snare. Resected and retrieved. - Diverticulosis in the sigmoid colon. Recommendation: - Discharge patient to home. - High fiber diet. - Await pathology results. - Repeat colonoscopy for surveillance based on pathology results. - The findings and recommendations were discussed with the patient. Procedure Code(s): --- Professional --- 50487, Colonoscopy, flexible; with removal of tumor(s), polyp(s), or other lesion(s) by snare technique 43370, Moderate sedation; each additional 15 minutes intraservice time G0500, Moderate sedation services provided by the same physician or other qualified health manager career performing a gastrointestinal endoscopic service that sedation supports, requiring the presence of an independent trained observer to assist in the monitoring of the patient's level of consciousness and physiological status; initial 15 minutes of intra-service time; patient age 5 years or older (additional time may be reported with 74830, as appropriate) Diagnosis Code(s): --- Professional --- Z83.71, Family history of colonic polyps K63.5, Polyp of colon K57.30, Diverticulosis of large intestine without perforation or abscess without bleeding CPT copyright 2019 [employer]. All rights reserved. The codes documented in this report are preliminary and upon customer service supervisor review may be revised to meet current compliance requirements. Reggie Winkler, 08/30/2020 2:11:50 PM Number of Addenda: 0 Note Initiated On: 08/30/2020 1:00 PM Endoscopy Report María Henry MD PN GI PROCEDURE [facility] [place], [place] * PAP Test (02/20/2020 11:04 AM [employer]) Case Report Pap ? Case: [id number] ? Authorizing Provider: ??María Henry MD ?Collected: ? 02/20/2020 1104 ? Ordering Location: ? [place] ?Received: ?02/20/2020 1412 ? Obstetrics/Gyneco logy ? First Screen: ?Jihan Hood, CT ? (ASCP) ? Specimen: ?Pap Test, Routine, Cervix/Endocervix ? 03/02/2020 12:54 PM [employer] [facility] Pap Specimen Adequacy Satisfactory for evaluation, endocervical/lindsay sformation zone component present. 03/02/2020 12:54 PM [employer] [facility] Pap Interpretation Negative for intraepithelial lesion or malignancy (NILM). 03/02/2020 12:54 PM [employer] [facility] Pap Disclaimer The Pap test is a screening test designed to aid in the detection of cervical cancer and its precursor lesions. It is not a diagnostic procedure and should not be used as the sole means of detecting cervical cancer. Both false-positive and false-negative results may occur. 03/02/2020 12:54 PM [employer] [facility] Gross Description The specimen is received in SurePath fixative and properly labeled. 1 Pap-stained SurePath slide is prepared. 03/02/2020 12:54 PM [employer] [facility] Embedded Images 0 12:54 PM [employer] [facility] Other Specimen Type ENTIRE ENDOCERVIX / Unknown 02/20/2020 11:04 AM [employer] 02/20/2020 2:12 PM [employer] Comment:LMP: Patient's last menstrual period was 02/15/2017 (exact date). María Henry MD LAB PATHOLOGY [facility] [address] * Hepatitis C Antibody [HCAB] (09/09/2017 10:57 AM CDT) Hepatitis C Antibody Nonreactive Nonreactive PN SOFT 09/09/2017 10:5 7 AM CDT 09/09/2017 1:24 PM CDT Narrative PN SOFT - 09/09/2017 3:04 PM CDT Performed at [facility], [address] [place] [address] CLIA number [id number] Laurel Kohler APRN, CNP LAB_1 Performing Organization Address [facility] Co de Phone Number PN SOFT [address] [place] [address] * HIV Antibody (04/09/1999 10:48 AM [employer]) HIV 1/HIV 2 Non Reac Non Reac IU/ML HP CONVERSION 04/09/1999 10:4 8 AM [employer] Jennifer Padron MD LAB_1 Performing Organization Address [facility]/ZIP Co de Phone Number HP CONVERSION from Last 3 Months or Most Recently Relevant to Health Maintenance Advance Directives * Full Code (Latest Code Status on File) Date Activated Date Inactivated Comments 04/04/2016 1:24 PM 04/04/2016 5:31 PM * Full Code Date Activated Date Inactivated Comments 08/08/2014 8:15 AM 08/08/2014 11:04 AM Care Teams Diamond Sawer Relationship Specialty Start Date End Date Elisa Landeros MD [address] [facility] [address] [place] [address] PCP - General Internal Medicine 03/26/22
--- NOTE | 2023-09-01 07:52 | W.ANESCHARGE ---
Anesthesia Charges Start Date/Time Anesthesia Start Date: 09/01/23 Anesthesia Start Time: 07:18 Stop Date/Time Anesthesia Stop Date: 09/01/23 Anesthesia Stop Time: 07:50
--- NOTE | 2023-09-01 10:17 | W.ANESCHARGE ---
Anesthesia Charges Start Date/Time Anesthesia Start Date: 09/01/23 Anesthesia Start Time: 07:18 Stop Date/Time Anesthesia Stop Date: 09/01/23 Anesthesia Stop Time: 07:50
== END 2023-09-01 06:23 | disposition home or self-care (01) ==
LOC: OP CLINIC 06:24
PROVIDERS: PCP Internal Medicine; Visit Provider Surgery
DX: K63.5 Polyp of colon (principal); Z86.010 Personal history of colon polyps
CPT/HCPCS: 00811; 45380; 45385; 88305; J2704

== ENCOUNTER 2024-01-19 09:23 | Outpatient (CLI) | payer BC, SELFPAY ==
--- OUTSIDE RECORDS SUMMARY | 2024-01-19 09:25 | XMS_ITS | Clinical Summary ---
Author Organization [employer] [facility] Address [place], [place] [address] Care Team Providers Care Youth Pastor Name Role Phone Tevin Landeros Primary Care Provider [phone] Allergies Active Allergy Reactions Criticality Noted Date [...] 24 hrs. 20 tablet 12/07/2017 Active iron sadaf,ps-FA-B-C#12-s ucc 65 mg-65 mg -1,000 mcg (24) [...] needed for Nausea/Vomiting. 15 tablet 03/30/2020 Active Social History Tobacco Use Types [...] Comments Blood Pressure 141/72 03/30/2020 12:30 AM [employer] Pulse 70 03/29/2020 11:27 PM [employer] Temperature 36.5 ??C (97.7 ??F) 03/29/2020 9:52 PM CS T Respiratory Rate 19 03/29/2020 9:52 PM [employer] Oxygen Saturation 95% 03/30/2020 12:30 AM [employer] Inhaled Oxygen Concentration - - Weight 74.8 kg (165 lb) 03/29/2020 9:52 PM [employer] Height 167.6 cm (5' 6) 03/29/2020 9:52 PM [employer] Body Mass Index 26.63 03/29/2020 9:52 PM [employer] Plan of Treatment Health Maintenance Due Date [...] (1 of 2) 2014 COVID-19 vaccine series (2023- season) 2023 01/29/2022 Influenza for age 50-64 12/20/2023 Pap test for age 21-65 08/10/2026 , 08/11/2023 Pneumococcal series for age 6-64 Aged Out No longer eligible b ased on patient's age to complete this topic Procedures Procedure Name Priority Date/Time Associated Diagnosis Comments HPV HIGH RISK Routine 08/11/2023 8:20 AM CDT from Last 3 Months or Most Recently Relevant to Health Maintenance Results * HPV HIGH RISK (08/11/2023 8:20 AM CDT) TYPE 16 Negative Negative 08/13/2023 3:37 PM CDT [facility] TYPE 18 Negative Negative 08/13/2023 3:37 PM CDT [facility] OTHER HIGH RISK TYPES Negative Negative 08/13/2023 3:37 PM CDT [facility] Other (Cervical/Vagina l) 08/11/2023 8:20 AM CDT 08/12/2023 8:56 AM CDT Narrative [facility] - 08/13/2023 3:37 PM CDT HPV types 16, 18, 31, 33, 35, 39, 45, 51, 52, 56, 58, 59, 66 and 68 DNA were undetectable or below the pre-set threshold. Methodology: Elida Dc 4800 HPV Test Vonda Brice MD MICROBIOLOGY [facility] [address] [address], from Last 3 Months or Most Recently Relevant to Health Maintenance Advance Directives * Full Code (Latest Code Status on File) Date Activated Date Inactivated Comments 12/07/2017 11:29 AM 12/07/2017 4:52 PM Care Teams Youth Pastor Relationship Specialty Start Date End Date Tevin Landeros PCP - General Internal Medicine 12/03/17
--- OUTSIDE RECORDS SUMMARY | 2024-01-19 09:25 | XMS_ITS | Clinical Summary ---
Author Organization [employer] [facility] Address [address] [place] [address] Care Team Providers Care Chiropractic Assistant Name Role Phone Elisa Landeros MD Primary Care Provider [phone] Source Comments You are receiving this document as you are listed as the primary care provider,follow-up provider, or the patient has been referred to you for consultation.This is in compliance with the Medicare and[facility] EHR Incentive Program,which states Providers who transition their patient to another setting of careor provider of care or refers their patient to another provider of care shouldprovide summary care record for each transition of care or referral. Approva Allergies Active Allergy Reactions Criticality Noted Date [...] Date Diagnosed Date ERIC on CPAP 08/08/2022 Overview (08/08/2022): HST 07/18/22 RDI 15/hr MIL 16/hr O2 kenny: 87% APAP 5-15 cm H2O [place] Kidney stones 11/25/2019 Overview (05/16/2021): Recurrence: 2019: calcium oxalate from 03/2020 stoen analysis Cervical high risk HPV (human papillomavirus) te st positive 09/22/2017 Overview (03/05/2020): [facility] Review: History: 2018: NILM, HPV+ (non 16/18) 2019: NILM, HPV+ (non 16/18)/ COLP NEGATIVE 2020: NILM HPV NEGATIVE Plan, per ASCCP guidelines: REPEAT COTEST IN 3 YEARS 2022 Radial scar of breast 03/17/2016 Unilateral high frequency hearing loss 5 Hiatal hernia 07/26/2013 Hypersomnia with sleep apnea 06/24/2010 Overview (12/10/2016): LW Modifier: RDI 21 Dental appliance ; 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/2008 Overview (12/10/2016): LW Modifier: multiple surgeries since ; Strabismus NOS Mixed incontinence urge and stress (male)(female ) 05/30/2008 Overview (12/10/2016): LW Onset: 2007 ; Incontinence Urinary Stress & Urge Mixed stress and urge urinary incontinence 05/30 Overview (05/16/2021): LW Onset: 2007 ; Incontinence Urinary Stress & Urge Major depressive disorder, single episode 2003 Overview (12/10/2016): Depression Major NOS Resolved Problems Problem Noted Date Diagnosed Date Resolved Date Adenomatous polyp of colon 09/05/2020 0 11/16/2020 Overview (09/05/2020): Colonoscopy completed 08/2020. Repeat in 3 years (08/2023). Diaphragmatic hernia 11/23/2009 021 Overview (12/10/2016): LW Modifier: large with Surya's Ulcers ; Hernia Hiatal Migraine with aura 05/30/2008 Overview (11/21/2015): LW Modifier: hormonal component: numbness on right side Abnormal glandular Papanicol aou smear of cervix 05/30/2008 09/22/2017 Overview (12/10/2016): LW Modifier: + HPV, repeat pap smear normal LW Onset: 1988 ; Pap Smear Abnormal Pers Hx Esophageal reflux 08/11/2003 05/07/2006 Overview (12/10/2016): Gastroesophageal Reflux Disease Lumbago 09/24/2002 11/16/2020 Overview (12/10/2016): Pain Low Back Immunizations Name Administration Dates Next Due Flu Vac (3+ yrs) 01/28/2018, 5,01/12/2014,2012,02/18/2010,01/23/2009,02/11/1996 Flu Vac Preserv Free (3+yrs) 03/23/2012,01/19/20 08,01/21/2006 Fluzone Qiv Multidose Vial 0 .25 (6-35 Mos) 01/26/2019 HepB Adult (Heplisav-B, 19+ yrs, 2 dose series) 04/28/2022 Influenza J1L4-23 04/16/2009 Influenza IIV4 (Quadrivalent ) 0.5mL (17218) 01/29/2022,02/14/2021,12/31/2019,2016,02/05/2016,01/19/2015 Influenza, Unspecified Formulation 02/02,02/16/2008,01/19/2008,2006,01/21/2006,02/11/1996 Moderna Monovalent [...] Comments Blood Pressure 137/92 04/28/2022 1:39 PM EMERGENCY DOCTOR Pulse 62 04/28/2022 1:39 PM EMERGENCY DOCTOR Temperature 36.4 ??C (97.6 ??F) 03/26/2016 11:26 [...] 07/26/2013, 01/21 Colonoscopy 08/31/2023 08/30/2020, 07/20, 11/29/2009 COVID-19 Vaccine ( season) 2023 02/06/2023, 01/29/2022, 02/14/2021, Additional history exists Influenza (#1) 2023 02/06/2023, 01/18, 02/14/2021, Additional history exists Cholesterol 04/28/2027 04/28/2022, 08/20, 07/26/2013, Additional history exists Dexa 05/07/2032 05/07/2022 HIV Screening (Preventive Services) Completed 04/09/1999 Hep C Screening (Preventive Services) Completed 09/09/2017 Zoster/Shingles Completed 09/17/2018, 09/09/2017 HepA Aged Out No longer eligi ble [...] BONE DENSITY SPINE/HIP Routine 05/07/2022 11:33 AM EMERGENCY DOCTOR Post-menopause LIPID PANEL & DIRECT LDL (IF NEEDED) Routine 04/28/2022 2:26 PM EMERGENCY DOCTOR Routine physical examination MM MAMMOGRAM SCREENING BILAT W 3D GERRY W CAD Routine 03/26/2022 2:07 PM EMERGENCY DOCTOR ENDOSCOPY, COLON, SCREENING/DIAGNOSTI C Routine 08/30/2020 1:00 PM CDT Special screening for malignant neoplasms, colon PAP TEST Routine 02/20/2020 11:04 AM EMERGENCY DOCTOR Screening for malignant neoplasm of cervix HEPATITIS C ANTIBODY, WITH REFLEX Routine 09/09/2017 10:57 AM CDT Special screening examination for viral disease HIV ANTIBODY Routine 04/09/1999 10:48 AM EMERGENCY DOCTOR from Last 3 Months or Most Recently Relevant to Health Maintenance Results * DXA Bone Density Spine/Hip (05/07/2022 11:33 AM EMERGENCY DOCTOR) Anatomical Region Laterality Modality Lower Extremity, Spine, Hip, L-Spine Other Narrative 05/14/2022 11:43 AM EMERGENCY DOCTOR CLINIC DXA REPORT Patient Name: ??Dana Allan Densitometer: Plumbr A Appt Dept/Resource: [facility] Bone Density [facility] [...] baseline bone density test (first one at [facility]) VERTEBRAL FRACTURE ASSESSMENT: Not done ASSESSMENT: 1. [...] Direct LDL (If Needed) (04/28/2022 2:26 PM EMERGENCY DOCTOR) [facility] Cholesterol 176 0 - 199 mg/dL 04/28/2022 5:46 PM EMERGENCY DOCTOR [facility] Triglyceride 117 <=149 mg/dL 04/28/2022 5:46 PM EMERGENCY DOCTOR [facility] HDL Cholesterol 56 >=40 mg/dL 04/28/2022 5:46 PM EMERGENCY DOCTOR [facility] LDL, Calculated 97 <130 mg/dL 04/28/2022 5:46 PM EMERGENCY DOCTOR [facility] Non HDL Chol, Calculated 120 <=159 mg/dL 04/28/2022 5:46 PM EMERGENCY DOCTOR [facility] Cholesterol/HDL Ratio 3.1 04/28/2022 5:46 PM EMERGENCY DOCTOR [facility] Hours Fasting Unknown 04/28/2022 5:46 PM EMERGENCY DOCTOR [facility] Blood Venipuncture / Unknown 04/28/2022 2:26 PM EMERGENCY DOCTOR 04/28/2022 2:26 PM EMERGENCY DOCTOR Elisa Landeros MD LAB_1 [facility] [address] [place] [address], [facility] [address] [place] [id number], [facility] [phone] * MM Mammogram Screening Bilat W 3D Gerry W CAD (03/26/2022 2:07 PM EMERGENCY DOCTOR) Anatomical Region Laterality Modality Breast Bilateral Mammography Impressions 03/26/2022 2:50 PM EMERGENCY DOCTOR : ACR BI-RADS Category 1: Negative RECOMMENDATION: Follow Up Imaging in 12 months - Bilateral The results and recommendations of this examination will be communicated to the patient. Narrative 03/26/2022 2:50 PM EMERGENCY DOCTOR MM MAMMOGRAM SCREENING BILAT W 3D GERRY [...] Endoscopy, colon, diagnostic (08/30/2020 1:00 PM CDT) Anatomical Region Laterality Modality Other 08/30/2020 1:00 PM CDT Narrative 08/30/2020 1:00 PM CDT Patient Name: Dana [...] oxygen saturations were monitored ? continuously. The [id number] was ? introduced through the anus and [...] Procedure Code(s): ?? --- Professional --- ? 69375, Colonoscopy, flexible; with ? removal of tumor(s), polyp(s), or ? other lesion(s) by snare technique ? 19919, Moderate sedation; each ? additional 15 minutes [...] (additional time may ? be reported with 35920, as ? appropriate) Diagnosis Code(s): ?? --- Professional --- ? Z83.71, Family history of colonic ? polyps ? K63.5, Polyp of colon ? K57.30, Diverticulosis of large ? intestine without perforation or ? abscess without bleeding CPT copyright 2019 [employer]. All rights reserved. The codes documented in this report are preliminary and upon ballast inspector review may be revised to meet current [...] their 60-70s), Last colonoscopy: July 2015 Providers: Erika Casanova, RN Referring MD: Elisa Landeros MD Medicines: Midazolam 3 mg IV, Fentanyl 150 micrograms IV Complications: No immediate complications. Procedure: After I obtained informed consent, the scope was passed under direct vision. Throughout the procedure, the patient's blood pressure, pulse, and oxygen saturations were monitored continuously. The [id number] was introduced through the anus and advanced [...] the patient. Procedure Code(s): --- Professional --- 34683, Colonoscopy, flexible; with removal of tumor(s), polyp(s), or other lesion(s) by snare technique 40337, Moderate sedation; each additional 15 minutes intraservice time G0500, Moderate sedation services provided by the same physician or other qualified health hourly caregiver performing a gastrointestinal endoscopic service that sedation supports, requiring the presence of an independent trained observer to assist in the monitoring of the patient's level of consciousness and physiological status; initial 15 minutes of intra-service time; patient age 5 years or older (additional time may be reported with 61128, as appropriate) Diagnosis Code(s): --- Professional --- Z83.71, Family history of colonic polyps K63.5, Polyp of colon K57.30, Diverticulosis of large intestine without perforation or abscess without bleeding CPT copyright 2019 [employer]. All rights reserved. The codes documented in this report are preliminary and upon ballast inspector review may be revised to meet current compliance requirements. Reggie Winkler, 08/30/2020 2:11:50 PM Number of Addenda: 0 Note Initiated On: 08/30/2020 1:00 PM Endoscopy Report María Henry MD [facility] GI PROCEDURE ORDE REYES * PAP Test (02/20/2020 11:04 AM EMERGENCY DOCTOR) Case Report Pap ? Case: [id number] ? Authorizing Provider: ??María Henry MD ?Collected: ? 02/20/2020 1104 ? Ordering Location: ? [facility] ?Received: ?02/20/2020 1412 ? Obstetrics/Gyneco logy ? First Screen: ?Jihan Hood, CT ? (ASCP) ? Specimen: ?Pap Test, Routine, Cervix/Endocervix ? 03/02/2020 12:54 PM EMERGENCY DOCTOR [facility] Pap Specimen Adequacy Satisfactory for evaluation, endocervical/lindsay sformation zone component present. 03/02/2020 12:54 PM EMERGENCY DOCTOR [facility] Pap Interpretation Negative for intraepithelial lesion or malignancy (NILM). 03/02/2020 12:54 PM EMERGENCY DOCTOR [facility] Pap Disclaimer The Pap test is a screening test designed to aid in the detection of cervical cancer and its precursor lesions. It is not a diagnostic procedure and should not be used as the sole means of detecting cervical cancer. Both false-positive and false-negative results may occur. 03/02/2020 12:54 PM EMERGENCY DOCTOR [facility] Gross Description The specimen is received in SurePath fixative and properly labeled. 1 Pap-stained SurePath slide is prepared. 03/02/2020 12:54 PM EMERGENCY DOCTOR [facility] Embedded Images 0 12:54 PM EMERGENCY DOCTOR [facility] Other Specimen Type ENTIRE ENDOCERVIX / Unknown 02/20/2020 11:04 AM EMERGENCY DOCTOR 02/20/2020 2:12 PM EMERGENCY DOCTOR Comment:LMP: Patient's last menstrual period was 02/15/2017 (exact date). María Henry MD LAB PATHOLOGY [facility] [address] [place] [address], [facility] * Hepatitis C Antibody [HCAB] (09/09/2017 10:57 AM CDT) Pathologist [facility] Hepatitis C Antibody Nonreactive Nonreactive PN SOFT 09/09/2017 10:5 7 AM CDT 09/09/2017 1:24 PM CDT Narrative PN SOFT - 09/09/2017 3:04 PM CDT Performed at [address] [address] CLIA number [id number] Laurel Kohler APRN, CNP LAB_1 Performing Organization Address City/[facility] Co de Phone Number PN SOFT [address] [place] [id number] * HIV Antibody (04/09/1999 10:48 AM EMERGENCY DOCTOR) Pathologist [facility] HIV 1/HIV 2 Non Reac Non Reac IU/ML HP CONVERSION 04/09/1999 10:4 8 AM EMERGENCY DOCTOR Jennifer Padron MD LAB_1 Performing Organization Address City/[facility]/ZIP Co de Phone Number HP CONVERSION from Last 3 Months or Most Recently Relevant to Health Maintenance Advance Directives * Full Code (Latest Code Status on File) Date Activated Date Inactivated Comments 04/04/2016 1:24 PM 04/04/2016 5:31 PM * Full Code Date Activated Date Inactivated Comments 08/08/2014 8:15 AM 08/08/2014 11:04 AM Care Teams Chiropractic Assistant Relationship Specialty Start Date End Date Elisa Landeros MD [address] [place] [address] PCP - General Internal Medicine 03/26/22
--- NOTE | 2024-01-19 09:45 | CRLHL7_ITS ---
For Patients: As a result of the Cures Act, medical imaging exams and procedure reports are released immediately into your electronic medical record. You may view this report before your referring provider. If you have questions, please contact your health care provider. LEFT DIAGNOSTIC MAMMOGRAM WITH COMPUTER-AIDED DETECTION AND TOMOSYNTHESIS CLINICAL HISTORY: LEFT breast short-term follow-up. COMPARISON: 07/07/23, 06/02/23, 03/26/22. TECHNIQUE: Digital LEFT mammogram in two projections with computer-aided detection. Tomosynthesis was used in this interpretation. BREAST COMPOSITION: There are scattered areas of fibroglandular density. FINDINGS: 3D CC/MLO LEFT breast mammogram images submitted. Benign calcifications. No architectural distortion. Scattered ovoid densities are similar. No suspicious mass. IMPRESSION: No suspicious findings. No significant change. No evidence of malignancy. RECOMMENDATIONS: Routine BILATERAL screening mammography. BI-RADS Category 2: Benign Results and recommendations discussed with the patient. A lay language report of this examination will be provided to the patient. Dictated by Quintin Todd MD @ 01/19/2024 12:42:08 PM /sp SP/Dictated by: Quintin Todd MD @ 01/19/2024 12:42:00 PM (Electronically Signed)
== END 2024-01-19 09:24 | disposition home or self-care (01) ==
LOC: MAMMO 09:23
PROVIDERS: PCP Internal Medicine; Visit Provider Internal Medicine
DX: N63.20 Unspecified lump in the left breast, unspecified quadrant (principal); R92.8 Other abnormal and inconclusive findings on diagnostic imaging of breast
CPT/HCPCS: 77065; G0279

== ENCOUNTER 2024-08-08 08:15 | Outpatient (CLI) | payer BC, SELFPAY | END 2024-08-08 08:16 | disposition home or self-care (01) | LOC: NFLDREF 08-10 02:43 | PROVIDERS: PCP Internal Medicine; Referring Provider Internal Medicine; Visit Provider Internal Medicine | DX: Z13.6 Encounter for screening for cardiovascular disorders (principal); Z13.1 Encounter for screening for diabetes mellitus | CPT/HCPCS: 80061; 82947 ==

== ENCOUNTER 2024-11-04 08:31 | Outpatient (CLI) | payer BC, SELFPAY ==
--- NOTE | 2024-11-04 08:45 | CRLHL7_ITS ---
For Patients: As a result of the Century Cures Act, medical imaging exams and procedure reports are released immediately into your electronic medical record. You may view this report before your referring provider. If you have questions, please contact your health care provider. INDICATION: BILATERAL SCREENING MAMMOGRAM, ASYMPTOMATIC 59 Y/O FEMALE COMPARISON: 06/02/2023,, 12/17/2020 TECHNIQUE: Digital mammogram in CC and MLO projections including computer-aided detection (CAD) and tomosynthesis. BREAST COMPOSITION: There are scattered areas of fibroglandular density. FINDINGS: No suspicious findings. ASSESSMENT: BI-RADS 1 Negative RECOMMENDATION: Annual screening mammogram. A lay language report of this examination will be provided to the patient. Dictated by: Quintin Todd MD @ 11/04/2024 11:42:44 (Electronically Signed)
== END 2024-11-04 08:32 | disposition home or self-care (01) ==
LOC: MAMMO 08:31
PROVIDERS: PCP Internal Medicine; Visit Provider Internal Medicine
DX: Z12.31 Encounter for screening mammogram for malignant neoplasm of breast (principal)
CPT/HCPCS: 77063; 77067